=== PATIENT | female | born 1955 | race American Indian/Alaskan Native ===

== ENCOUNTER 2020-02-08 12:12 | Inpatient (IN) | payer MEDICAID ==
[~2020-02-08] VITALS: Ht 172.7 cm; Wt 122.7 kg
[~2020-02-08 12:12] MED LIST: ASPI-1265 PO; ATOR20TA PO; FURO-149 PO; GLIP10TA21 PO; HYDR-4353 PO; LANS30CA56 PO; METO-384 PO; MONT10TA21 PO; NITR0.4T51 SL; OXYC10TA86 PO; POTA8TAB3 PO
[2020-02-08] MEDS ORDERED: morphine 4 MG/ML inj SYRINge IV ONE ×2 (12:25→14:40)
[2020-02-08] MEDS ORDERED: fentaNYL/PF 50MCG/1 ML 2ML syringe IV ONE (12:35)
[2020-02-08 12:53] LABS: BASOPHILS # (AUTO) 0.1 X10'3 (0-0.2); EOSINOPHILS # (AUTO) 0.3 X10'3 (0-0.9); EOSINOPHILS % (AUTO) 2.7 % (0-6); HEMATOCRIT 37.7 % (35.0-45.0); HEMOGLOBIN 12.2 g/dl (12.0-16.0); LYMPHOCYTES # (AUTO) 2.8 X10'3 (1.1-4.8); LYMPHOCYTES % (AUTO) 26.6 % (21-51); MEAN CORPUSCULAR HEMOGLOBIN 26.6 PG (27.0-31.0); MEAN CORPUSCULAR HGB CONC 32.5 g/dL (33.0-36.5); MEAN PLATELET VOLUME 9.9 FL (7.4-10.4); MONOCYTES # (AUTO) 0.6 X10'3 (0-0.9); MONOCYTES % (AUTO) 5.8 % (2-12); NEUTROPHILS # (AUTO) 6.8 X10'3 (1.8-7.7); NEUTROPHILS % (AUTO) 63.9 % (42-75); PLATELET COUNT 236 X10'3 (140-440); RED CELL DISTRIBUTION WIDTH 14.5 % (11.5-14.5); WHITE BLOOD COUNT 10.6 X10'3 (4.5-11.0)
[2020-02-08 13:01] LABS: ALBUMIN 2.9 G/DL (3.4-5.0); ANION GAP 7 (8-16); BLOOD UREA NITROGEN 18 MG/DL (7-18); BUN/CREATININE RATIO 16.5 (6.6-38.0); CALCIUM 8.5 MG/DL (8.5-10.1); CHLORIDE 99 MMOL/L (99-107); CREATININE 1.09 MG/DL (0.40-0.90); GLUCOSE 295 MG/DL (70-104); POTASSIUM 4.2 MMOL/L (3.5-5.1); SODIUM 133 MMOL/L (135-145); TOTAL CARBON DIOXIDE 27.2 MMOL/L (24-32); eGFR 51 ML/MIN
[2020-02-08] MEDS ORDERED: ondansetron/PF 4mg/2ml inj IV PRN (15:10)
[2020-02-08] MEDS ORDERED: potassium Cl 20 mEq SR tablet PO PRN ×2 (15:10)
[2020-02-08] MEDS ORDERED: morphine 2 MG/ML inj. syringe IV PRN ×2 (15:10)
[2020-02-08] MEDS ORDERED: acetaminophen 325mg tablet PO PRN ×2 (15:10)
[2020-02-08] MEDS ORDERED: magnesium 4gm in 100ml NS 100 ML IV PRN (15:10)
[2020-02-08] MEDS ORDERED: HYDROcodone/acetaminophen 10/325mg tab PO PRN (15:10)
[2020-02-08] MEDS ORDERED: potassium CL 10mEq/100ml bag 100 ML IV PRN ×2 (15:10)
[2020-02-08] MEDS ORDERED: HYDROmorphone inj. 0.5 MG/0.5 ML DISP.SYRIN IV PRN (15:10)
[2020-02-08] MEDS ORDERED: magnesium 2GM in 50ml NS 50 ML IV PRN (15:10)
[2020-02-08] MEDS ORDERED: magnesium Cl slow-release 64mg tablet PO PRN (15:10)
[2020-02-08] MEDS ORDERED: HYDROcodone/acetaminophen 5mg/325mg tablet PO PRN (15:10)
[2020-02-08] MEDS ORDERED: dextrose 50%-water 50ml dispensing syringe IV PRN ×2 (15:15)
[2020-02-08] MEDS ORDERED: glucagon, human recombinant 1mg kit SUBCUT PRN (15:15)
[2020-02-08] MEDS ORDERED: dextrose ORAL solution 15 GM/59 ML bottle PO PRN ×2 (15:15)
[2020-02-08] MEDS ORDERED: MESSAGE TO PHARMACY PO ONE (15:15)
[2020-02-08] MEDS ORDERED: SITA100T11 PO (15:18)
[2020-02-08 15:31] LABS: CLARITY,URINE SLIGHTLY CLOUDY (Clear); COLOR,URINE STRAW (Yellow); GLUCOSE, URINE NEGATIVE (Neg); KETONES,URINE NEGATIVE (Neg); LEUKOCYTE ESTERASE ,URINE NEGATIVE (Neg); NITRITES, URINE NEGATIVE (Neg); OCCULT BLOOD,URINE TRACE-INTACT (Neg); PROTEIN,URINE NEGATIVE (Neg); UA COLLECTION TYPE OTHER; UROBILINOGEN,URINE 0.2 E.U/dL (0.2-1.0)
[2020-02-08] MEDS: normal saline 1000ml 1,000 ML IV SCH (15:32)
[2020-02-08 15:41] LABS: HEMOGLOBIN A1C 13.6 % (4.5-6.2)
[2020-02-08 15:44] LABS: MUCUS STRANDS FEW /LPF (Neg); SQUAMOUS EPITHELIAL CELL,UR MANY /LPF (FEW); TRANSITIONAL EPI CELLS,URINE MODERATE /HPF
[2020-02-08 15:46] LABS: BACTERIA,URINE FEW /HPF (Neg); RBC,URINE 0-2 /HPF (0-2); WBC,URINE 0-4 /HPF (0-4)
--- NOTE | 2020-02-08 16:08 | NUR ---
Patient in room ED 10. I have received report from Silver JONES and had the opportunity to ask questions and assume patient care.
[2020-02-08 18:00] VITALS: BP 126/69
--- NOTE | 2020-02-08 18:22 | NUR ---
Problems reprioritized. Patient report given, questions answered & plan of care reviewed with Zane JONES.
[2020-02-08] MEDS: heparin, porcine 5000 units/ml vial SQ SCH (19:43)
[2020-02-08] MEDS: insulin Lispro (HumaLOG) vial - multi-dose SQ SCH ×2 (19:46→22:46)
[2020-02-08] MEDS: docusate sod 100mg capsule PO SCH (19:53)
[2020-02-08] MEDS: K and/or MAG REPLACEMENT MC SCH (20:00)
[2020-02-08] MEDS ORDERED: oxyCODONE SR 10mg (sust. release) tab PO SCH (20:00)
[2020-02-08] MEDS ORDERED: LIDOcaine 2% 10ml TOPICAL JELLY (Urojet) TP ONE (20:00)
[2020-02-08] MEDS ORDERED: naloxone 0.4 mg/ml inj IV PRN (20:25)
[2020-02-08] MEDS ORDERED: CADD PCA waste documentation MC PRN (20:25)
[2020-02-08] MEDS: HYDROmorphone/NS 1 mg/ml CADD 50 ML IV SCH ×3 (21:00→22:49)
[2020-02-08 22:00] VITALS: BP 115/52
[2020-02-08] MEDS: insulin glargine (Lantus) pen - multi-dose SQ SCH (22:45)
[2020-02-08] MEDS: atorvastatin 20mg tablet PO SCH (22:48)
[2020-02-09] MEDS: HYDROmorphone/NS 1 mg/ml CADD 50 ML IV SCH ×10 (01:00→23:00)
[2020-02-09] MEDS: normal saline 1000ml 1,000 ML IV SCH ×3 (01:09→23:38)
[2020-02-09 06:00] VITALS: BP 120/55
[2020-02-09 06:09] LABS: ALANINE AMINOTRANSFERASE 23 U/L (12-78); ALBUMIN 2.4 G/DL (3.4-5.0); ALBUMIN/GLOBULIN RATIO 0.7 (1.1-1.5); ALKALINE PHOSPHATASE 89 IU/L (46-116); ANION GAP 2 (8-16); ASPARTATE AMINO TRANSFERASE 16 U/L (10-37); BILIRUBIN,TOTAL 0.4 MG/DL (0.1-1.0); BLOOD UREA NITROGEN 13 MG/DL (7-18); BUN/CREATININE RATIO 12.4 (6.6-38.0); CHLORIDE 105 MMOL/L (99-107); CREATININE 1.05 MG/DL (0.40-0.90); GLUCOSE 229 MG/DL (70-104); MAGNESIUM 2.1 MG/DL (1.5-2.4); POTASSIUM 4.2 MMOL/L (3.5-5.1); SODIUM 134 MMOL/L (135-145); TOTAL CARBON DIOXIDE 26.8 MMOL/L (24-32); TOTAL PROTEIN 5.8 G/DL (6.4-8.2); eGFR 53 ML/MIN
--- NOTE | 2020-02-09 06:10 | NUR ---
Patient in room ORTHO 4021. I have received report from Jw JONES and had the opportunity to ask questions and assume patient care.
[2020-02-09 06:16] LABS: BASOPHILS % (AUTO) 0.4 % (0-1); CALCIUM 7.6 MG/DL (8.5-10.1); EOSINOPHILS # (AUTO) 0.1 X10'3 (0-0.9); EOSINOPHILS % (AUTO) 1.3 % (0-6); HEMATOCRIT 30.7 % (35.0-45.0); HEMOGLOBIN 10.1 g/dl (12.0-16.0); LYMPHOCYTES # (AUTO) 3.3 X10'3 (1.1-4.8); LYMPHOCYTES % (AUTO) 31.8 % (21-51); MEAN CORPUSCULAR HEMOGLOBIN 27.1 PG (27.0-31.0); MEAN CORPUSCULAR HGB CONC 32.8 g/dL (33.0-36.5); MEAN CORPUSCULAR VOLUME 82.7 FL (78-98); MEAN PLATELET VOLUME 9.8 FL (7.4-10.4); MONOCYTES # (AUTO) 0.8 X10'3 (0-0.9); MONOCYTES % (AUTO) 7.2 % (2-12); NEUTROPHILS # (AUTO) 6.2 X10'3 (1.8-7.7); NEUTROPHILS % (AUTO) 59.3 % (42-75); PLATELET COUNT 187 X10'3 (140-440); RED BLOOD COUNT 3.71 X10'6 (4.20-5.60); RED CELL DISTRIBUTION WIDTH 14.8 % (11.5-14.5); WHITE BLOOD COUNT 10.4 X10'3 (4.5-11.0)
[2020-02-09] MEDS: heparin, porcine 5000 units/ml vial SQ SCH ×2 (06:50→19:24)
[2020-02-09] MEDS: metoprolol succinate 25mg (24-HOUR) SR. Tablet PO SCH (07:31)
[2020-02-09] MEDS: montelukast 10mg tablet PO SCH (07:32)
[2020-02-09] MEDS: pantoprazole 40mg Tablet.DR PO SCH (07:32)
[2020-02-09] MEDS: docusate sod 100mg capsule PO SCH ×2 (07:32→19:24)
[2020-02-09] MEDS: furosemide 40mg tablet PO SCH (07:32)
[2020-02-09] MEDS: K and/or MAG REPLACEMENT MC SCH ×2 (07:35→20:00)
[2020-02-09 11:00] VITALS: BP 119/53
[2020-02-09] MEDS: insulin Lispro (HumaLOG) vial - multi-dose SQ SCH ×3 (12:17→21:01)
[2020-02-09 12:45] VITALS: BP 119/53
[2020-02-09] MEDS ORDERED: ceFAZolin 1000mg inj IV ONE (13:35)
[2020-02-09] MEDS ORDERED: VANCOMYCIN 1,500MG inj. 1,500 MG in normal saline 500ml IV soln 500 ML IV ONE (13:49)
[2020-02-09] MEDS ORDERED: ceFAZolin 2gm in dextrose, iso 50 ML IV ONE (13:50)
--- NOTE | 2020-02-09 15:22 | NUR ---
DM consult, A1c 13.6, met with patient at bedside and given written DM education handout with verbal review. She reports she normally takes glipizide and last week her PCP added Princess. Sees DM educators at [facility]. Discussed at length carb portion sizes, eating smaller more frequent meals, reducing sugar sweetened beverages. Provided RD contact information. Addendum: 02/09/20 at [address] Amended: Links added.
[2020-02-09 18:00] VITALS: BP 132/51
--- NOTE | 2020-02-09 18:19 | NUR ---
Problems reprioritized. Patient report given, questions answered & plan of care reviewed with Smiley JONES.
[2020-02-09] MEDS: atorvastatin 20mg tablet PO SCH (19:24)
[2020-02-09] MEDS: insulin glargine (Lantus) pen - multi-dose SQ SCH (21:03)
[2020-02-10] VITALS (36 sets, daily range): BP systolic 91–143; BP diastolic 41–71
[2020-02-10] MEDS: HYDROmorphone/NS 1 mg/ml CADD 50 ML IV SCH ×11 (01:00→23:00)
[2020-02-10] MEDS ORDERED: famotidine/PF 10 mg/ml inj IV ONE (05:30)
--- NOTE | 2020-02-10 06:09 | NUR ---
Problems reprioritized. Patient report given, questions answered & plan of care reviewed with ROBERT Zaidi.
--- NOTE | 2020-02-10 06:36 | NUR ---
Patient in room ORTHO 4021. I have received report from Smiley JONES and had the opportunity to ask questions and assume patient care.
[2020-02-10] MEDS: pantoprazole 40mg Tablet.DR PO SCH (06:53)
[2020-02-10] MEDS: metoprolol succinate 25mg (24-HOUR) SR. Tablet PO SCH (06:53)
[2020-02-10] MEDS: furosemide 40mg tablet PO SCH (06:53)
[2020-02-10] MEDS: heparin, porcine 5000 units/ml vial SQ SCH ×2 (06:53→19:34)
[2020-02-10] MEDS: docusate sod 100mg capsule PO SCH ×2 (06:53→19:34)
[2020-02-10] MEDS: montelukast 10mg tablet PO SCH (06:53)
[2020-02-10] MEDS ORDERED: VANCOMYCIN 1,500MG inj. 1,500 MG in normal saline 500ml IV soln 500 ML IV ONE ×2 (07:00→08:00)
[2020-02-10] MEDS ORDERED: ceFAZolin 2gm in dextrose, iso 50 ML IV ONE (07:00)
[2020-02-10] MEDS: normal saline 1000ml 1,000 ML IV SCH ×3 (07:09→19:39)
[2020-02-10 07:14] LABS: BASOPHILS # (AUTO) 0.1 X10'3 (0-0.2); BASOPHILS % (AUTO) 0.6 % (0-1); EOSINOPHILS # (AUTO) 0.2 X10'3 (0-0.9); EOSINOPHILS % (AUTO) 1.2 % (0-6); HEMATOCRIT 29.6 % (35.0-45.0); HEMOGLOBIN 9.6 g/dl (12.0-16.0); LYMPHOCYTES # (AUTO) 2.6 X10'3 (1.1-4.8); LYMPHOCYTES % (AUTO) 21.3 % (21-51); MEAN CORPUSCULAR HEMOGLOBIN 26.8 PG (27.0-31.0); MEAN CORPUSCULAR HGB CONC 32.2 g/dL (33.0-36.5); MEAN PLATELET VOLUME 9.8 FL (7.4-10.4); MONOCYTES # (AUTO) 1.1 X10'3 (0-0.9); MONOCYTES % (AUTO) 8.7 % (2-12); NEUTROPHILS # (AUTO) 8.3 X10'3 (1.8-7.7); NEUTROPHILS % (AUTO) 68.2 % (42-75); PLATELET COUNT 169 X10'3 (140-440); RED BLOOD COUNT 3.57 X10'6 (4.20-5.60); RED CELL DISTRIBUTION WIDTH 14.6 % (11.5-14.5); WHITE BLOOD COUNT 12.2 X10'3 (4.5-11.0)
[2020-02-10 07:29] LABS: ALANINE AMINOTRANSFERASE 22 U/L (12-78); ALBUMIN 2.3 G/DL (3.4-5.0); ALBUMIN/GLOBULIN RATIO 0.7 (1.1-1.5); ALKALINE PHOSPHATASE 85 IU/L (46-116); ANION GAP 6 (8-16); ASPARTATE AMINO TRANSFERASE 16 U/L (10-37); BILIRUBIN,TOTAL 0.4 MG/DL (0.1-1.0); BLOOD UREA NITROGEN 7 MG/DL (7-18); BUN/CREATININE RATIO 7.5 (6.6-38.0); CALCIUM 7.6 MG/DL (8.5-10.1); CHLORIDE 106 MMOL/L (99-107); CREATININE 0.93 MG/DL (0.40-0.90); GLUCOSE 234 MG/DL (70-104); MAGNESIUM 1.9 MG/DL (1.5-2.4); POTASSIUM 3.8 MMOL/L (3.5-5.1); SODIUM 137 MMOL/L (135-145); TOTAL CARBON DIOXIDE 25.4 MMOL/L (24-32); TOTAL PROTEIN 5.8 G/DL (6.4-8.2); eGFR 61 ML/MIN
[2020-02-10] MEDS ORDERED: tetracaine 1% (10mg/ml) pres. free inj. ONE ×2 (07:48→08:07)
[2020-02-10] MEDS ORDERED: morphine /PF 1mg/ml 10ml inj. ONE (07:51)
[2020-02-10] MEDS ORDERED: MIDAZolam 5mg/5ml vial ONE (07:51)
[2020-02-10] MEDS: K and/or MAG REPLACEMENT MC SCH ×2 (08:00→20:00)
[2020-02-10] MEDS ORDERED: ringers solution, lacted 1,000 ML IV SCH (08:32)
[2020-02-10] MEDS ORDERED: ROPIVAcaine 0.2%/PF PUMP/bolus 550 ML ADDCANAL SCH (08:32)
[2020-02-10] MEDS ORDERED: naloxone 2mg/2ml inj 2 MG in normal saline 500ml IV soln 500 ML IV PRN (08:32)
[2020-02-10] MEDS ORDERED: morphine 2 MG/ML inj. syringe IV PRN (08:35)
[2020-02-10] MEDS ORDERED: meperidine/PF 25mg/ml syringe IV PRN (08:35)
[2020-02-10] MEDS ORDERED: morphine 4 MG/ML inj SYRINge IV PRN (08:35)
[2020-02-10] MEDS ORDERED: acetaminophen 1,000mg/100ml IV 100 ML IV PRN (08:35)
[2020-02-10] MEDS ORDERED: HYDROmorphone inj. 0.5 MG/0.5 ML DISP.SYRIN IV PRN (08:35)
[2020-02-10] MEDS ORDERED: ROPIVAcaine 0.2% (10 MG/5 ML) BOLUS INJECTION ADDCANAL PRN (08:35)
[2020-02-10] MEDS ORDERED: proCHLORperazine 10 MG/2 ml inj IV PRN (08:35)
[2020-02-10] MEDS ORDERED: diphenhydrAMINE 50 mg/ml inj IV PRN (08:35)
[2020-02-10] MEDS ORDERED: ondansetron/PF 4mg/2ml inj IV PRN ×3 (08:35→12:00)
[2020-02-10] MEDS ORDERED: insulin regular, human U-100 3ml vial - multi-dose ONE (08:51)
[2020-02-10] MEDS ORDERED: propofol inj 20 ML IV ONE ×4 (08:58→09:59)
[2020-02-10] MEDS ORDERED: LIDOcaine 2% (20mg/ml) 5ml vial ONE (08:58)
[2020-02-10] MEDS ORDERED: phenylephrine 10mg/ml inj. ONE (08:59)
[2020-02-10] MEDS ORDERED: ePHEDrine 50MG/ML INJ. ONE (08:59)
[2020-02-10] MEDS ORDERED: 0.9 % SODIUM CHLORIDE 10 ML VIAL ONE (09:18)
[2020-02-10] MEDS ORDERED: PHENYLephrine 100 MG in NS 250ml IV soln IV SCH (10:30)
[2020-02-10] MEDS ORDERED: LIDOcaine 1%/PF 5ML 10 MG/ML VIAL ONE (10:51)
[2020-02-10] MEDS ORDERED: ROPIVAcaine 0.5% (5mg/ml) 30ml vial ONE (10:51)
[2020-02-10] MEDS ORDERED: cloNIDine hcl/PF 100mcg/ml inj ONE (10:56)
[2020-02-10] MEDS ORDERED: diphenhydrAMINE 25mg capsule PO PRN ×2 (12:00)
[2020-02-10] MEDS ORDERED: acetaminophen 325mg tablet PO PRN (12:00)
[2020-02-10] MEDS ORDERED: bisacodyl 10mg suppository rectal RC PRN (12:00)
[2020-02-10] MEDS ORDERED: magnesium hydroxide 30ml (MOM) UD suspension PO PRN (12:00)
--- NOTE | 2020-02-10 12:02 | NUR ---
RECEIVED FROM OR VIA BED ACCOMPANIED BY ANESTHESIOLOGIST DR BLUM, REPORT GIVEN. PT ALERT AND AWAKE WIT NO COMPLAINT OF PAIN AT THIS TIME. 20 GAUGE ART LINE RIGHT WRIST, 20 GAUGE PIV R FA PATENT AND RUNNING LR AT 100 ML/HR. RLE DRESSING CDI. SKIN PINK AND WARM, PERIPHERAL PULSES PALPABLE, UNABLE TO PALPATE R PEDAL COVERED IN SPLINT. F/C DRAINING CLEAR YELLOW FLUID. RESTING COMFORTABLY
--- NOTE | 2020-02-10 12:02 | NUR ---
20 GAUGE SL NOTED R HAND
--- NOTE | 2020-02-10 12:02 | NUR ---
SPINAL SENSATION BELOW KNEE, SCDS APPLIED.
[2020-02-10] MEDS ORDERED: ceFAZolin 1000mg inj ONE (12:03)
[2020-02-10 12:30] LABS: ISTAT CREATININE 0.7 mg/dL (0.6-1.1); ISTAT HGB 8.8 g/dl (12.0-16.0); ISTAT IONIZED CALCIUM 1.14 mmol/L (1.03-1.32); ISTAT K 3.4 mmol/L (3.5-5.1)
[2020-02-10] MEDS: HYDROmorphone inj. 0.5 MG/0.5 ML DISP.SYRIN IV PRN ×5 (14:19→15:29)
--- NOTE | 2020-02-10 16:02 | NUR ---
TRANSFERRED VIA BED ACCOMPANIED BY MYSELF, REPORT GIVEN. PT ALERT AND AWAKE WITH COMPLAINT OF PAIN AT LEVEL 7 AT THIS TIME. 20 GAUGE ART LINE RIGHT WRIST DC/D CATH TIP INTACT, 20 GAUGE PIV R FA PATENT AND RUNNING LR AT 100 ML/HR, 20 GAUGE SL R HAND. RLE DRESSING CDI. SKIN PINK AND WARM, PERIPHERAL PULSES PALPABLE, UNABLE TO PALPATE R PEDAL COVERED IN SPLINT. F/C DRAINING CLEAR YELLOW FLUID. LEFT IN CARE OF ORTHO NURSE
--- NOTE | 2020-02-10 16:18 | NUR ---
Patient back to room from Recovery in stable condition. Vital signs stable, patient is alert and oriented. Call light in reach
[2020-02-10] MEDS: ceFAZolin 1GM/D5W- ADD-VANTAGE 50 ML IV SCH (17:48)
--- NOTE | 2020-02-10 18:10 | NUR ---
Patient in room ORTHO 4021. I have received report from ROBERT Zaidi and had the opportunity to ask questions and assume patient care.
[2020-02-10] MEDS: insulin Lispro (HumaLOG) vial - multi-dose SQ SCH ×2 (18:48→21:13)
--- NOTE | 2020-02-10 19:13 | NUR ---
Cadd pump was showing a different number on the infused medicine instate of 0.60 it should be 21.2.For some reason day nurse hit a wrong button.
[2020-02-10] MEDS: atorvastatin 20mg tablet PO SCH (19:34)
[2020-02-10] MEDS ORDERED: vancomycin/NS 1 GM ADD-VANTAGE 250 ML IV SCH (20:00)
[2020-02-10] MEDS: sennosides 8.6mg tablet PO SCH (21:14)
[2020-02-10] MEDS: insulin glargine (Lantus) pen - multi-dose SQ SCH (21:14)
[2020-02-10] MEDS: temazepam 15mg capsule PO PRN (21:15)
[2020-02-11] VITALS (7 sets, daily range): BP systolic 106–155; BP diastolic 53–91
[2020-02-11] MEDS: ceFAZolin 1GM/D5W- ADD-VANTAGE 50 ML IV SCH (00:14)
[2020-02-11] MEDS: HYDROmorphone/NS 1 mg/ml CADD 50 ML IV SCH ×4 (01:00→07:00)
[2020-02-11 06:13] LABS: HEMOGLOBIN 8.5 g/dl (12.0-16.0); RED BLOOD COUNT 3.13 X10'6 (4.20-5.60)
[2020-02-11 06:18] LABS: BASOPHILS % (AUTO) 0.1 % (0-1); EOSINOPHILS % (AUTO) 0 % (0-6); HEMATOCRIT 26.4 % (35.0-45.0); LYMPHOCYTES # (AUTO) 1.7 X10'3 (1.1-4.8); LYMPHOCYTES % (AUTO) 7.3 % (21-51); MEAN CORPUSCULAR HEMOGLOBIN 27.2 PG (27.0-31.0); MEAN CORPUSCULAR HGB CONC 32.2 g/dL (33.0-36.5); MEAN CORPUSCULAR VOLUME 84.6 FL (78-98); MEAN PLATELET VOLUME 9.4 FL (7.4-10.4); MONOCYTES # (AUTO) 2.1 X10'3 (0-0.9); MONOCYTES % (AUTO) 9.2 % (2-12); NEUTROPHILS # (AUTO) 18.8 X10'3 (1.8-7.7); NEUTROPHILS % (AUTO) 83.4 % (42-75); PLATELET COUNT 142 X10'3 (140-440); RED CELL DISTRIBUTION WIDTH 14.9 % (11.5-14.5); WHITE BLOOD COUNT 22.6 X10'3 (4.5-11.0)
[2020-02-11 06:28] LABS: ALANINE AMINOTRANSFERASE 19 U/L (12-78); ALBUMIN 2.5 G/DL (3.4-5.0); ALBUMIN/GLOBULIN RATIO 0.6 (1.1-1.5); ALKALINE PHOSPHATASE 88 IU/L (46-116); ANION GAP 11 (8-16); ASPARTATE AMINO TRANSFERASE 21 U/L (10-37); BILIRUBIN,TOTAL 0.6 MG/DL (0.1-1.0); BLOOD UREA NITROGEN 14 MG/DL (7-18); BUN/CREATININE RATIO 10.9 (6.6-38.0); CALCIUM 8.2 MG/DL (8.5-10.1); CHLORIDE 97 MMOL/L (99-107); CREATININE 1.28 MG/DL (0.40-0.90); GLUCOSE 312 MG/DL (70-104); MAGNESIUM 1.6 MG/DL (1.5-2.4); POTASSIUM 4.3 MMOL/L (3.5-5.1); SODIUM 129 MMOL/L (135-145); TOTAL CARBON DIOXIDE 20.6 MMOL/L (24-32); TOTAL PROTEIN 6.4 G/DL (6.4-8.2); eGFR 42 ML/MIN
--- NOTE | 2020-02-11 06:30 | NUR ---
Problems reprioritized. Patient report given, questions answered & plan of care reviewed with ROBERT Billingsley.
--- NOTE | 2020-02-11 06:30 | NUR ---
Patient in room ORTHO 4021. I have received report from ROBERT Maxwell and had the opportunity to ask questions and assume patient care.
[2020-02-11 06:53] LABS: ANISOCYTOSIS 1+; MICROCYTOSIS 1+; PLATELET ESTIMATE NORMAL; TOTAL CELLS COUNTED 100
[2020-02-11] MEDS: normal saline 1000ml 1,000 ML IV SCH ×2 (07:38→23:09)
[2020-02-11] MEDS ORDERED: oxyCODONE/APAP 10/325mg tablet PO PRN (07:45)
[2020-02-11] MEDS: K and/or MAG REPLACEMENT MC SCH ×2 (08:00→20:00)
[2020-02-11] MEDS: oxyCODONE/APAP 10/325mg tablet PO PRN ×3 (08:08→21:36)
[2020-02-11] MEDS: docusate sod 100mg capsule PO SCH ×2 (08:10→21:38)
[2020-02-11] MEDS: montelukast 10mg tablet PO SCH (08:10)
[2020-02-11] MEDS: metoprolol succinate 25mg (24-HOUR) SR. Tablet PO SCH (08:10)
[2020-02-11] MEDS: furosemide 40mg tablet PO SCH (08:10)
[2020-02-11] MEDS: heparin, porcine 5000 units/ml vial SQ SCH ×2 (08:11→21:38)
[2020-02-11] MEDS: pantoprazole 40mg Tablet.DR PO SCH (08:11)
[2020-02-11] MEDS: insulin Lispro (HumaLOG) vial - multi-dose SQ SCH ×3 (08:25→19:01)
[2020-02-11] MEDS: HYDROmorphone 1 mg/ml syringe IV PRN ×2 (13:55→18:56)
--- NOTE | 2020-02-11 15:20 | NUR ---
Paged to inform her that pts WBC Count had increased from 12.2 yesterday to 22.6 today. Pt is using IS every hour. Lungs have decreased BS and Urine output is clear duane in color. No new orders received. Will continue to monitor patient.
--- NOTE | 2020-02-11 18:30 | NUR ---
Problems reprioritized. Patient report given, questions answered & plan of care reviewed with ROBERT Nathan.
[2020-02-11] MEDS: insulin glargine (Lantus) pen - multi-dose SQ SCH (21:34)
[2020-02-11] MEDS: temazepam 15mg capsule PO PRN (21:35)
[2020-02-11] MEDS: atorvastatin 20mg tablet PO SCH (21:37)
[2020-02-11] MEDS: sennosides 8.6mg tablet PO SCH (21:38)
[2020-02-12] MEDS: HYDROmorphone 1 mg/ml syringe IV PRN (03:23)
[2020-02-12] MEDS: oxyCODONE/APAP 10/325mg tablet PO PRN ×3 (05:27→16:58)
[2020-02-12 06:00] VITALS: BP 131/77
--- NOTE | 2020-02-12 06:20 | NUR ---
Problems reprioritized. Patient report given, questions answered & plan of care reviewed with ROBERT PAK.
--- NOTE | 2020-02-12 06:30 | NUR ---
Patient in room ORTHO 4021. I have received report from ROBERT Nathan and had the opportunity to ask questions and assume patient care.
[2020-02-12 07:02] LABS: BASOPHILS # (AUTO) 0.1 X10'3 (0-0.2); BASOPHILS % (AUTO) 0.3 % (0-1); EOSINOPHILS % (AUTO) 0.2 % (0-6); HEMATOCRIT 23.2 % (35.0-45.0); HEMOGLOBIN 7.5 g/dl (12.0-16.0); LYMPHOCYTES # (AUTO) 2.1 X10'3 (1.1-4.8); LYMPHOCYTES % (AUTO) 13.1 % (21-51); MEAN CORPUSCULAR HEMOGLOBIN 27.2 PG (27.0-31.0); MEAN CORPUSCULAR HGB CONC 32.5 g/dL (33.0-36.5); MEAN CORPUSCULAR VOLUME 83.7 FL (78-98); MONOCYTES # (AUTO) 1.9 X10'3 (0-0.9); MONOCYTES % (AUTO) 11.7 % (2-12); NEUTROPHILS # (AUTO) 12.2 X10'3 (1.8-7.7); NEUTROPHILS % (AUTO) 74.7 % (42-75); PLATELET COUNT 143 X10'3 (140-440); RED BLOOD COUNT 2.77 X10'6 (4.20-5.60); WHITE BLOOD COUNT 16.4 X10'3 (4.5-11.0)
[2020-02-12 07:25] LABS: ALANINE AMINOTRANSFERASE 16 U/L (12-78); ALBUMIN/GLOBULIN RATIO 0.5 (1.1-1.5); ALKALINE PHOSPHATASE 87 IU/L (46-116); ANION GAP 8 (8-16); ASPARTATE AMINO TRANSFERASE 23 U/L (10-37); BILIRUBIN,TOTAL 0.7 MG/DL (0.1-1.0); BLOOD UREA NITROGEN 10 MG/DL (7-18); BUN/CREATININE RATIO 10.1 (6.6-38.0); CALCIUM 7.9 MG/DL (8.5-10.1); CHLORIDE 102 MMOL/L (99-107); CREATININE 0.99 MG/DL (0.40-0.90); GLUCOSE 168 MG/DL (70-104); MAGNESIUM 1.7 MG/DL (1.5-2.4); POTASSIUM 3.8 MMOL/L (3.5-5.1); SODIUM 133 MMOL/L (135-145); TOTAL CARBON DIOXIDE 22.8 MMOL/L (24-32); TOTAL PROTEIN 5.7 G/DL (6.4-8.2); eGFR 57 ML/MIN
[2020-02-12] MEDS: K and/or MAG REPLACEMENT MC SCH (08:00)
[2020-02-12] MEDS: furosemide 40mg tablet PO SCH (08:54)
[2020-02-12] MEDS: docusate sod 100mg capsule PO SCH (08:54)
[2020-02-12] MEDS: montelukast 10mg tablet PO SCH (08:54)
[2020-02-12] MEDS: metoprolol succinate 25mg (24-HOUR) SR. Tablet PO SCH (08:54)
[2020-02-12] MEDS: pantoprazole 40mg Tablet.DR PO SCH (08:54)
[2020-02-12] MEDS: heparin, porcine 5000 units/ml vial SQ SCH (08:56)
[2020-02-12] MEDS: insulin Lispro (HumaLOG) vial - multi-dose SQ SCH ×2 (09:20→13:59)
[2020-02-12] MEDS: normal saline 1000ml 1,000 ML IV SCH (09:22)
[2020-02-12 10:00] VITALS: BP 140/56
--- NOTE | 2020-02-12 17:00 | NUR ---
Received discharge orders for pt to transfer to [facility] rehab today. IV removed from right hand with cannula intact. Picked up stored narcotics (Oxycodone (6 tabs) and Hydrocodone/APAP 10 MG 1 tablet, in the Pharmacy. Pts daughter brought in medications yesterday and left at [employer]. Sent them to Pharmacy right after they were received from the [employer]. Medications sent to [facility] with [employer] ups driver. TC made to Clementina at [facility] and gave report on patient and informed her that pt had narcotics (as listed above) and advised lock up. Clementina said she would be doing the same thing. Pt transported via [facility] to [facility] at 1710 tonight.
== END 2020-02-12 17:00 | DRG 710 ==
LOC: ER 12:13 → ED HOLD 15:07 → ORTHO 4S 16:30
PROVIDERS: ADMIT Internal Medicine; ATTEND Internal Medicine
PROC: 3E0T3BZ Introduction of Anesthetic Agent into Peripheral Nerves and Plexi, Percutaneous Approach (ICD-10-PCS; 2020-02-10)
PROC: 0QSB04Z Reposition Right Lower Femur with Internal Fixation Device, Open Approach (ICD-10-PCS; principal; 2020-02-10 07:50)
DX: A41.9 Sepsis, unspecified organism (principal); S72.451A Displaced supracondylar fracture without intracondylar extension of lower end of right femur, initial encounter for closed fracture; G89.4 Chronic pain syndrome; I10 Essential (primary) hypertension; I25.10 Atherosclerotic heart disease of native coronary artery without angina pectoris; M17.11 Unilateral primary osteoarthritis, right knee; E66.9 Obesity, unspecified; K21.9 Gastro-esophageal reflux disease without esophagitis; D62 Acute posthemorrhagic anemia; E11.65 Type 2 diabetes mellitus with hyperglycemia; E78.5 Hyperlipidemia, unspecified; W01.0XXA Fall on same level from slipping, tripping and stumbling without subsequent striking against object, initial encounter; Z96.652 Presence of left artificial knee joint; Y93.01 Activity, walking, marching and hiking; Z87.891 Personal history of nicotine dependence; Z95.1 Presence of aortocoronary bypass graft; Z68.41 Body mass index [BMI] 40.0-44.9, adult; Y92.098 Other place in other non-institutional residence as the place of occurrence of the external cause
CPT/HCPCS: 36415; 71045; 73552; 73560; 73700; 80047; 80048; 80053; 81001; 82948; 83036; 83735; 85025; 86885; 86900; 86901; 86920; 87081; 93005; 97110; 97112; 97162; 97530; 99285; A4215; A6223; A6449; A7000; C1713; G0378; J0690; J0735; J1170; J1644; J1815; J2001; J2250; J2270; J2370; J2704; J2795; J3010; J3370; J3490; J7030; J7040

== ENCOUNTER 2020-02-15 07:46 | Emergency (ER) | payer MEDICAID ==
[~2020-02-15] VITALS: Ht 172.7 cm; Wt 130.0 kg
[~2020-02-15 07:46] MED LIST changes: +SITA100T11 PO
--- NOTE | 2020-02-15 09:06 | NUR ---
paged invisible braces orthodontist per provider request
[2020-02-15] MEDS ORDERED: morphine 4 MG/ML inj SYRINge IV ONE ×2 (09:30→12:35)
[2020-02-15 10:11] LABS: CLARITY,URINE CLEAR (Clear); COLOR,URINE STRAW (Yellow); GLUCOSE, URINE NEGATIVE (Neg); KETONES,URINE NEGATIVE (Neg); LEUKOCYTE ESTERASE ,URINE NEGATIVE (Neg); NITRITES, URINE NEGATIVE (Neg); OCCULT BLOOD,URINE NEGATIVE (Neg); PH,URINE 6.5 (4.8-8.0); PROTEIN,URINE NEGATIVE (Neg); UA COLLECTION TYPE CLN CATCH MIDSTREAM; UROBILINOGEN,URINE 0.2 E.U/dL (0.2-1.0)
[2020-02-15 11:00] LABS: BASOPHILS # (AUTO) 0.1 X10'3 (0-0.2); EOSINOPHILS # (AUTO) 0.2 X10'3 (0-0.9); EOSINOPHILS % (AUTO) 1.7 % (0-6); HEMOGLOBIN 7.1 g/dl (12.0-16.0); LYMPHOCYTES # (AUTO) 2.4 X10'3 (1.1-4.8); LYMPHOCYTES % (AUTO) 17.3 % (21-51); MEAN CORPUSCULAR HEMOGLOBIN 26.9 PG (27.0-31.0); MEAN CORPUSCULAR HGB CONC 32.3 g/dL (33.0-36.5); MEAN CORPUSCULAR VOLUME 83.3 FL (78-98); MONOCYTES # (AUTO) 1.3 X10'3 (0-0.9); MONOCYTES % (AUTO) 9.3 % (2-12); NEUTROPHILS # (AUTO) 9.9 X10'3 (1.8-7.7); NEUTROPHILS % (AUTO) 70.7 % (42-75); PLATELET COUNT 265 X10'3 (140-440); RED BLOOD COUNT 2.63 X10'6 (4.20-5.60); RED CELL DISTRIBUTION WIDTH 15.2 % (11.5-14.5); WHITE BLOOD COUNT 14.1 X10'3 (4.5-11.0)
[2020-02-15 11:11] LABS: ALANINE AMINOTRANSFERASE 18 U/L (12-78); ALBUMIN 1.8 G/DL (3.4-5.0); ALBUMIN/GLOBULIN RATIO 0.4 (1.1-1.5); ALKALINE PHOSPHATASE 160 IU/L (46-116); ANION GAP 9 (8-16); ASPARTATE AMINO TRANSFERASE 22 U/L (10-37); BILIRUBIN,TOTAL 0.7 MG/DL (0.1-1.0); BLOOD UREA NITROGEN 11 MG/DL (7-18); BUN/CREATININE RATIO 11.1 (6.6-38.0); CALCIUM 8.4 MG/DL (8.5-10.1); CHLORIDE 100 MMOL/L (99-107); CREATININE 0.99 MG/DL (0.40-0.90); GLUCOSE 192 MG/DL (70-104); POTASSIUM 3.2 MMOL/L (3.5-5.1); SODIUM 135 MMOL/L (135-145); TOTAL CARBON DIOXIDE 25.9 MMOL/L (24-32); TOTAL PROTEIN 6.1 G/DL (6.4-8.2); eGFR 57 ML/MIN
[2020-02-15] MEDS ORDERED: FERR240T5 PO (11:12)
[2020-02-15 14:09] VITALS: BP 147/66
== END 2020-02-15 14:10 ==
LOC: ER 07:47
DX: D64.9 Anemia, unspecified (principal); T84.84XA Pain due to internal orthopedic prosthetic devices, implants and grafts, initial encounter; M79.604 Pain in right leg; R05 Cough; I25.10 Atherosclerotic heart disease of native coronary artery without angina pectoris; E11.9 Type 2 diabetes mellitus without complications; Z96.698 Presence of other orthopedic joint implants; Z95.1 Presence of aortocoronary bypass graft; Z98.890 Other specified postprocedural states; Z79.82 Long term (current) use of aspirin; Z79.899 Other long term (current) drug therapy
CPT/HCPCS: 29505; 36415; 73560; 80053; 81003; 85025; 96374; 96376; 99285; J2270

== ENCOUNTER 2020-04-09 15:03 | Inpatient (IN) | payer MEDICAID ==
[~2020-04-09] VITALS: Ht 172.7 cm; Wt 119.1 kg
[~2020-04-09 15:03] MED LIST changes: +FERR240T5 PO
[2020-04-09] MEDS ORDERED: morphine 4 MG/ML inj SYRINge IV ONE ×2 (15:40→17:00)
[2020-04-09] MEDS ORDERED: ondansetron/PF 4mg/2ml inj IV ONE (15:40)
[2020-04-09 16:07] LABS: BASOPHILS # (AUTO) 0.1 X10'3 (0-0.2); BASOPHILS % (AUTO) 1.2 % (0-1); EOSINOPHILS # (AUTO) 0.1 X10'3 (0-0.9); EOSINOPHILS % (AUTO) 1.3 % (0-6); HEMATOCRIT 35.1 % (35.0-45.0); HEMOGLOBIN 11.4 g/dl (12.0-16.0); LYMPHOCYTES # (AUTO) 2.5 X10'3 (1.1-4.8); LYMPHOCYTES % (AUTO) 25.4 % (21-51); MEAN CORPUSCULAR HEMOGLOBIN 27.3 PG (27.0-31.0); MEAN CORPUSCULAR HGB CONC 32.4 g/dL (33.0-36.5); MEAN CORPUSCULAR VOLUME 84.2 FL (78-98); MEAN PLATELET VOLUME 8.3 FL (7.4-10.4); MONOCYTES # (AUTO) 0.7 X10'3 (0-0.9); MONOCYTES % (AUTO) 7.1 % (2-12); NEUTROPHILS # (AUTO) 6.4 X10'3 (1.8-7.7); PLATELET COUNT 350 X10'3 (140-440); RED BLOOD COUNT 4.18 X10'6 (4.20-5.60); RED CELL DISTRIBUTION WIDTH 14.7 % (11.5-14.5); WHITE BLOOD COUNT 9.8 X10'3 (4.5-11.0)
[2020-04-09 16:08] LABS: ALANINE AMINOTRANSFERASE 19 U/L (12-78); ALBUMIN 3.2 G/DL (3.4-5.0); ALBUMIN/GLOBULIN RATIO 0.8 (1.1-1.5); ALKALINE PHOSPHATASE 83 IU/L (46-116); ANION GAP 7 (8-16); ASPARTATE AMINO TRANSFERASE 14 U/L (10-37); BILIRUBIN,TOTAL 0.2 MG/DL (0.1-1.0); BLOOD UREA NITROGEN 22 MG/DL (7-18); CALCIUM 9.1 MG/DL (8.5-10.1); CHLORIDE 100 MMOL/L (99-107); GLUCOSE 152 MG/DL (70-104); POTASSIUM 4.1 MMOL/L (3.5-5.1); SODIUM 135 MMOL/L (135-145); TOTAL CARBON DIOXIDE 27.6 MMOL/L (24-32); TOTAL PROTEIN 7.4 G/DL (6.4-8.2); eGFR 56 ML/MIN
[2020-04-09] MEDS ORDERED: magnesium 2GM in 50ml NS 50 ML IV PRN (17:15)
[2020-04-09] MEDS ORDERED: bisacodyl 10mg suppository rectal RC PRN (17:15)
[2020-04-09] MEDS ORDERED: magnesium Cl slow-release 64mg tablet PO PRN (17:15)
[2020-04-09] MEDS ORDERED: magnesium 4gm in 100ml NS 100 ML IV PRN (17:15)
[2020-04-09] MEDS ORDERED: mag hydrox/Alum hydrox/simeth 30ml oral suspension PO PRN (17:15)
[2020-04-09] MEDS ORDERED: HYDROcodone/acetaminophen 5mg/325mg tablet PO PRN (17:15)
[2020-04-09] MEDS ORDERED: MESSAGE TO PHARMACY PO ONE (17:15)
[2020-04-09] MEDS ORDERED: potassium CL 10mEq/100ml bag 100 ML IV PRN ×2 (17:15)
[2020-04-09] MEDS ORDERED: diphenhydrAMINE 50 mg/ml inj IV PRN (17:15)
[2020-04-09] MEDS ORDERED: diphenhydrAMINE 25mg capsule PO PRN (17:15)
[2020-04-09] MEDS ORDERED: metoclopramide 5 mg/ml inj IV PRN (17:15)
[2020-04-09] MEDS ORDERED: morphine 2 MG/ML inj. syringe IV PRN ×3 (17:15→21:30)
[2020-04-09] MEDS ORDERED: acetaminophen 325mg tablet PO PRN ×2 (17:15)
[2020-04-09] MEDS ORDERED: potassium Cl 20 mEq SR tablet PO PRN ×2 (17:15)
[2020-04-09] MEDS ORDERED: acetaminophen 650mg rectal suppository RC PRN (17:15)
[2020-04-09] MEDS ORDERED: dextrose ORAL solution 15 GM/59 ML bottle PO PRN ×2 (17:15)
[2020-04-09] MEDS ORDERED: dextrose 50%-water 50ml dispensing syringe IV PRN ×2 (17:15)
[2020-04-09] MEDS ORDERED: glucagon, human recombinant 1mg kit SUBCUT PRN (17:15)
[2020-04-09] MEDS ORDERED: ondansetron/PF 4mg/2ml inj IV PRN (17:15)
[2020-04-09 17:48] LABS: CLARITY,URINE CLEAR (Clear); COLOR,URINE YELLOW (Yellow); GLUCOSE, URINE NEGATIVE (Neg); KETONES,URINE NEGATIVE (Neg); LEUKOCYTE ESTERASE ,URINE NEGATIVE (Neg); NITRITES, URINE NEGATIVE (Neg); OCCULT BLOOD,URINE NEGATIVE (Neg); PROTEIN,URINE NEGATIVE (Neg); UROBILINOGEN,URINE 0.2 E.U/dL (0.2-1.0)
[2020-04-09 17:54] LABS: UA COLLECTION TYPE FOLEY CATH
[2020-04-09 17:55] LABS: HEMOGLOBIN A1C 7.9 % (4.5-6.2)
[2020-04-09] MEDS: normal saline 1000ml 1,000 ML IV SCH (18:28)
[2020-04-09] MEDS: K and/or MAG REPLACEMENT MC SCH (20:00)
[2020-04-09] MEDS ORDERED: heparin, porcine 5000 units/ml vial SQ SCH (20:00)
[2020-04-09] MEDS ORDERED: temazepam 15mg capsule PO PRN (21:00)
[2020-04-09] MEDS: insulin glargine (Lantus) pen - multi-dose SQ SCH (21:00)
[2020-04-09] MEDS: HYDROcodone/acetaminophen 10/325mg tab PO PRN (21:35)
[2020-04-09 21:40] VITALS: BP 155/78
[2020-04-09] MEDS: morphine 4 MG/ML inj SYRINge IV PRN ×2 (21:49→23:51)
[2020-04-10] MEDS: HYDROcodone/acetaminophen 10/325mg tab PO PRN ×6 (01:48→22:51)
[2020-04-10] MEDS: morphine 4 MG/ML inj SYRINge IV PRN ×6 (02:24→20:00)
[2020-04-10] MEDS: normal saline 1000ml 1,000 ML IV SCH ×2 (04:38→13:49)
[2020-04-10] MEDS ORDERED: morphine 4 MG/ML inj SYRINge IV ONE (05:50)
[2020-04-10 06:00] VITALS: BP 133/57
--- NOTE | 2020-04-10 06:15 | NUR ---
Patient in room ORTHO 4010. I have received report from Analilia and had the opportunity to ask questions and assume patient care.
--- NOTE | 2020-04-10 06:19 | NUR ---
Problems reprioritized. Patient report given, questions answered & plan of care reviewed with ROBERT Deng.
[2020-04-10 06:34] LABS: BASOPHILS # (AUTO) 0.1 X10'3 (0-0.2); EOSINOPHILS # (AUTO) 0.1 X10'3 (0-0.9); HEMATOCRIT 34.5 % (35.0-45.0); HEMOGLOBIN 10.9 g/dl (12.0-16.0); LYMPHOCYTES # (AUTO) 3.2 X10'3 (1.1-4.8); LYMPHOCYTES % (AUTO) 26.3 % (21-51); MEAN CORPUSCULAR HEMOGLOBIN 26.3 PG (27.0-31.0); MEAN CORPUSCULAR HGB CONC 31.7 g/dL (33.0-36.5); MEAN CORPUSCULAR VOLUME 82.9 FL (78-98); MEAN PLATELET VOLUME 8.3 FL (7.4-10.4); MONOCYTES # (AUTO) 0.9 X10'3 (0-0.9); MONOCYTES % (AUTO) 7.5 % (2-12); NEUTROPHILS # (AUTO) 7.8 X10'3 (1.8-7.7); NEUTROPHILS % (AUTO) 64.2 % (42-75); PLATELET COUNT 339 X10'3 (140-440); RED BLOOD COUNT 4.16 X10'6 (4.20-5.60); RED CELL DISTRIBUTION WIDTH 14.5 % (11.5-14.5); WHITE BLOOD COUNT 12.1 X10'3 (4.5-11.0)
[2020-04-10 06:52] LABS: ALANINE AMINOTRANSFERASE 19 U/L (12-78); ALBUMIN/GLOBULIN RATIO 0.8 (1.1-1.5); ALKALINE PHOSPHATASE 80 IU/L (46-116); ANION GAP 9 (8-16); ASPARTATE AMINO TRANSFERASE 18 U/L (10-37); BILIRUBIN,TOTAL 0.3 MG/DL (0.1-1.0); BLOOD UREA NITROGEN 18 MG/DL (7-18); BUN/CREATININE RATIO 21.7 (6.6-38.0); CALCIUM 8.8 MG/DL (8.5-10.1); CHLORIDE 103 MMOL/L (99-107); CREATININE 0.83 MG/DL (0.40-0.90); GLUCOSE 99 MG/DL (70-104); MAGNESIUM 2.1 MG/DL (1.5-2.4); PHOSPHORUS 4.7 MG/DL (2.3-4.5); POTASSIUM 4.2 MMOL/L (3.5-5.1); SODIUM 138 MMOL/L (135-145); TOTAL CARBON DIOXIDE 26.3 MMOL/L (24-32); TOTAL PROTEIN 6.9 G/DL (6.4-8.2); eGFR 69 ML/MIN
[2020-04-10] MEDS: K and/or MAG REPLACEMENT MC SCH ×2 (08:00→20:00)
[2020-04-10 10:00] VITALS: BP 129/55
--- NOTE | 2020-04-10 11:53 | NUR ---
Pt's code changed from DNR to Full code, MD present in room while code status was being updated.
--- NOTE | 2020-04-10 14:57 | NUR ---
DM Consult: A1C 7.9 previously 13.6 January of this year. Pt seen by MARIO for written/verbal DM ed w/ RD contact information provided. Pt had questions regarding A1C, proper low Glu guidelines, and DKA which MARIO addressed. MARIO encouraged pt to f/u w/ PCP if low Glu become persistent. Addendum: 04/10/20 at [address] Amended: Links added.
[2020-04-10 18:00] VITALS: BP 144/62
--- NOTE | 2020-04-10 18:16 | NUR ---
Problems reprioritized. Patient report given, questions answered & plan of care reviewed with
[2020-04-10] MEDS: insulin glargine (Lantus) pen - multi-dose SQ SCH (21:00)
[2020-04-10 22:00] VITALS: BP 128/54
[2020-04-11] VITALS (17 sets, daily range): BP systolic 123–183; BP diastolic 40–100
[2020-04-11] MEDS: morphine 4 MG/ML inj SYRINge IV PRN ×4 (01:15→23:49)
[2020-04-11] MEDS: normal saline 1000ml 1,000 ML IV SCH ×3 (01:15→10:29)
--- NOTE | 2020-04-11 06:30 | NUR ---
Problems reprioritized. Patient report given, questions answered & plan of care reviewed with ROBERT Mon.
--- NOTE | 2020-04-11 06:37 | NUR ---
Patient in room ORTHO 4010. I have received report from ROBERT Heaton and had the opportunity to ask questions and assume patient care.
[2020-04-11 07:48] LABS: BASOPHILS # (AUTO) 0.1 X10'3 (0-0.2); BASOPHILS % (AUTO) 0.6 % (0-1); EOSINOPHILS # (AUTO) 0.2 X10'3 (0-0.9); EOSINOPHILS % (AUTO) 1.5 % (0-6); HEMATOCRIT 33.9 % (35.0-45.0); HEMOGLOBIN 10.8 g/dl (12.0-16.0); LYMPHOCYTES # (AUTO) 2.1 X10'3 (1.1-4.8); LYMPHOCYTES % (AUTO) 17.7 % (21-51); MEAN CORPUSCULAR HEMOGLOBIN 26.4 PG (27.0-31.0); MEAN CORPUSCULAR HGB CONC 31.8 g/dL (33.0-36.5); MEAN PLATELET VOLUME 8.2 FL (7.4-10.4); MONOCYTES # (AUTO) 0.8 X10'3 (0-0.9); MONOCYTES % (AUTO) 6.9 % (2-12); NEUTROPHILS # (AUTO) 8.7 X10'3 (1.8-7.7); NEUTROPHILS % (AUTO) 73.3 % (42-75); PLATELET COUNT 307 X10'3 (140-440); RED BLOOD COUNT 4.08 X10'6 (4.20-5.60); RED CELL DISTRIBUTION WIDTH 14.5 % (11.5-14.5); WHITE BLOOD COUNT 11.9 X10'3 (4.5-11.0)
[2020-04-11] MEDS: K and/or MAG REPLACEMENT MC SCH ×2 (08:00→20:59)
[2020-04-11 08:12] LABS: ALANINE AMINOTRANSFERASE 17 U/L (12-78); ALBUMIN 2.8 G/DL (3.4-5.0); ALBUMIN/GLOBULIN RATIO 0.7 (1.1-1.5); ALKALINE PHOSPHATASE 82 IU/L (46-116); ANION GAP 10 (8-16); ASPARTATE AMINO TRANSFERASE 16 U/L (10-37); BILIRUBIN,TOTAL 0.3 MG/DL (0.1-1.0); BLOOD UREA NITROGEN 13 MG/DL (7-18); BUN/CREATININE RATIO 17.8 (6.6-38.0); CALCIUM 8.4 MG/DL (8.5-10.1); CHLORIDE 102 MMOL/L (99-107); CREATININE 0.73 MG/DL (0.40-0.90); GLUCOSE 146 MG/DL (70-104); MAGNESIUM 1.8 MG/DL (1.5-2.4); PHOSPHORUS 3.6 MG/DL (2.3-4.5); POTASSIUM 4.1 MMOL/L (3.5-5.1); SODIUM 137 MMOL/L (135-145); TOTAL CARBON DIOXIDE 24.7 MMOL/L (24-32); TOTAL PROTEIN 6.8 G/DL (6.4-8.2); eGFR 81 ML/MIN
[2020-04-11] MEDS: HYDROcodone/acetaminophen 10/325mg tab PO PRN ×3 (08:23→20:45)
[2020-04-11] MEDS ORDERED: ringers solution, lacted 1,000 ML IV SCH (13:58)
[2020-04-11] MEDS ORDERED: meperidine/PF 25mg/ml syringe IV PRN ×2 (14:00)
[2020-04-11] MEDS ORDERED: ondansetron/PF 4mg/2ml inj IV PRN ×2 (14:00→18:20)
[2020-04-11] MEDS ORDERED: morphine 4 MG/ML inj SYRINge IV PRN (14:00)
[2020-04-11] MEDS ORDERED: morphine 2 MG/ML inj. syringe IV PRN (14:00)
[2020-04-11] MEDS ORDERED: proCHLORperazine 10 MG/2 ml inj IV PRN (14:00)
[2020-04-11] MEDS ORDERED: glycopyrrolate 0.2mg/ml inj ONE (14:25)
[2020-04-11] MEDS ORDERED: fentaNYL/PF 50MCG/1 ML 2ML syringe ONE (14:36)
[2020-04-11] MEDS ORDERED: MIDAZolam 1mg/ml 10ml vial ONE (14:36)
[2020-04-11] MEDS ORDERED: VANCOMYCIN 1,500MG inj. 1,500 MG in normal saline 500ml IV soln 300 ML IV ONE (15:01)
[2020-04-11] MEDS ORDERED: ceFAZolin 1000mg inj ONE ×2 (15:03)
[2020-04-11] MEDS ORDERED: TRANEXAMIC ACID 1 GM IN NACL,ISO-OS 100 ML IV ONE (15:20)
[2020-04-11] MEDS ORDERED: ceFAZolin 1GM/D5W- ADD-VANTAGE 50 ML IV ONE (17:00)
[2020-04-11] MEDS ORDERED: vancomycin 1,000mg inj ONE ×2 (17:41)
[2020-04-11] MEDS ORDERED: propofol inj 20 ML IV ONE (17:41)
[2020-04-11] MEDS ORDERED: LIDOcaine 1%/PF 5ML 10 MG/ML VIAL ONE (17:41)
[2020-04-11] MEDS ORDERED: diphenhydrAMINE 25mg capsule PO PRN ×2 (18:20)
[2020-04-11] MEDS ORDERED: acetaminophen 325mg tablet PO PRN (18:20)
[2020-04-11] MEDS ORDERED: magnesium hydroxide 30ml (MOM) UD suspension PO PRN (18:20)
[2020-04-11] MEDS ORDERED: bisacodyl 10mg suppository rectal RC PRN (18:20)
--- NOTE | 2020-04-11 18:22 | NUR ---
Problems reprioritized. Patient report given, questions answered & plan of care reviewed with ROBERT Cortes.
[2020-04-11] MEDS ORDERED: ROPIVAcaine 0.5% (5mg/ml) 30ml vial ONE (18:38)
--- NOTE | 2020-04-11 18:46 | NUR ---
Patient in room ORTHO 4010. I have received report from Elieser JONES and had the opportunity to ask questions and assume patient care. Patient in OR at this time.
--- NOTE | 2020-04-11 18:52 | NUR ---
Received from OR via , accompanied by Anesthesiologist DR CASTRO and report given by Anesthesiolgist. AWAKENS TO VOICE. VITALS STABLE. DRESSING DI. ANA M PAIN. SENSATION AT MID CALF. RUIZ WITH CLEAR URINE,
[2020-04-11] MEDS: meperidine/PF 25mg/ml syringe IV PRN ×2 (19:29→20:04)
[2020-04-11] MEDS ORDERED: vancomycin/NS 1 GM ADD-VANTAGE 250 ML IV SCH (20:00)
--- NOTE | 2020-04-11 20:02 | NUR ---
Report called to receiving nurse. Transferred via BED Belongings . Special Issues communicated to receiving nurse. AWAKE AND ORIENTED. VITALS STABLE. DRESSING DI. STATES PAIN IMPROVING. TO ORTHO RM 4010B AT THIS TIME.
--- NOTE | 2020-04-11 20:05 | NUR ---
Recieved report from Rehan JONES from recovery room. Call light placed within reach, bed locked & low position.
[2020-04-11] MEDS: oxyCODONE SR 10mg (sust. release) tab PO SCH (20:44)
[2020-04-11] MEDS: insulin glargine (Lantus) pen - multi-dose SQ SCH (21:30)
[2020-04-11] MEDS: atorvastatin 20mg tablet PO SCH (21:38)
[2020-04-11] MEDS: sennosides 8.6mg tablet PO SCH (21:38)
[2020-04-12] MEDS: ceFAZolin 1GM/D5W- ADD-VANTAGE 50 ML IV SCH ×2 (00:44→08:01)
[2020-04-12] MEDS: HYDROcodone/acetaminophen 10/325mg tab PO PRN ×6 (00:44→21:13)
[2020-04-12 02:00] VITALS: BP 151/65
[2020-04-12] MEDS: morphine 4 MG/ML inj SYRINge IV PRN ×8 (02:30→23:44)
[2020-04-12 03:06] LABS: BASOPHILS # (AUTO) 0.1 X10'3 (0-0.2); BASOPHILS % (AUTO) 0.8 % (0-1); EOSINOPHILS % (AUTO) 0 % (0-6); HEMATOCRIT 29.8 % (35.0-45.0); HEMOGLOBIN 9.7 g/dl (12.0-16.0); LYMPHOCYTES % (AUTO) 6.2 % (21-51); MEAN CORPUSCULAR HEMOGLOBIN 26.9 PG (27.0-31.0); MEAN CORPUSCULAR HGB CONC 32.5 g/dL (33.0-36.5); MEAN CORPUSCULAR VOLUME 82.9 FL (78-98); MEAN PLATELET VOLUME 7.9 FL (7.4-10.4); MONOCYTES # (AUTO) 0.4 X10'3 (0-0.9); MONOCYTES % (AUTO) 2.7 % (2-12); NEUTROPHILS # (AUTO) 15.1 X10'3 (1.8-7.7); NEUTROPHILS % (AUTO) 90.3 % (42-75); PLATELET COUNT 286 X10'3 (140-440); RED BLOOD COUNT 3.59 X10'6 (4.20-5.60); WHITE BLOOD COUNT 16.7 X10'3 (4.5-11.0)
[2020-04-12 03:22] LABS: ALANINE AMINOTRANSFERASE 20 U/L (12-78); ALBUMIN 2.6 G/DL (3.4-5.0); ALBUMIN/GLOBULIN RATIO 0.7 (1.1-1.5); ALKALINE PHOSPHATASE 78 IU/L (46-116); ANION GAP 7 (8-16); ASPARTATE AMINO TRANSFERASE 29 U/L (10-37); BILIRUBIN,TOTAL 0.3 MG/DL (0.1-1.0); BLOOD UREA NITROGEN 12 MG/DL (7-18); BUN/CREATININE RATIO 15.6 (6.6-38.0); CALCIUM 8.4 MG/DL (8.5-10.1); CHLORIDE 100 MMOL/L (99-107); CREATININE 0.77 MG/DL (0.40-0.90); GLUCOSE 207 MG/DL (70-104); MAGNESIUM 1.7 MG/DL (1.5-2.4); PHOSPHORUS 3.9 MG/DL (2.3-4.5); POTASSIUM 4.3 MMOL/L (3.5-5.1); SODIUM 132 MMOL/L (135-145); TOTAL CARBON DIOXIDE 25.3 MMOL/L (24-32); TOTAL PROTEIN 6.4 G/DL (6.4-8.2); eGFR 76 ML/MIN
[2020-04-12] MEDS: normal saline 1000ml 1,000 ML IV SCH ×2 (04:36→15:00)
[2020-04-12 06:00] VITALS: BP 149/44
--- NOTE | 2020-04-12 06:29 | NUR ---
Problems reprioritized. Patient report given, questions answered & plan of care reviewed with Shakeel JONES.
--- NOTE | 2020-04-12 06:31 | NUR ---
Patient in room ORTHO 4007. I have received report from [facility] and had the opportunity to ask questions and assume patient care.
[2020-04-12] MEDS: K and/or MAG REPLACEMENT MC SCH ×2 (06:56→19:55)
[2020-04-12] MEDS: oxyCODONE SR 10mg (sust. release) tab PO SCH ×2 (08:01→19:54)
[2020-04-12] MEDS: pantoprazole 40mg Tablet.DR PO SCH (08:01)
[2020-04-12] MEDS: furosemide 40mg tablet PO SCH (08:01)
[2020-04-12] MEDS: aspirin 81mg tab.chew PO SCH (08:01)
[2020-04-12] MEDS: metoprolol succinate 25mg (24-HOUR) SR. Tablet PO SCH (08:02)
[2020-04-12 10:00] VITALS: BP 120/46
[2020-04-12] MEDS: insulin Lispro (HumaLOG) vial - multi-dose SQ SCH ×2 (13:35→19:31)
[2020-04-12 18:00] VITALS: BP 122/43
--- NOTE | 2020-04-12 18:25 | NUR ---
Problems reprioritized. Patient report given, questions answered & plan of care reviewed with Sophia.
--- NOTE | 2020-04-12 18:39 | NUR ---
Patient in room ORTHO 4010. I have received report from Shakeel JONES and had the opportunity to ask questions and assume patient care.
[2020-04-12] MEDS: sennosides 8.6mg tablet PO SCH (19:54)
[2020-04-12] MEDS: atorvastatin 20mg tablet PO SCH (19:54)
[2020-04-12] MEDS: magnesium hydroxide 30ml (MOM) UD suspension PO PRN (19:57)
[2020-04-12] MEDS: insulin glargine (Lantus) pen - multi-dose SQ SCH (21:26)
[2020-04-12 22:00] VITALS: BP 112/50
[2020-04-13] MEDS: normal saline 1000ml 1,000 ML IV SCH ×3 (00:53→20:55)
[2020-04-13] MEDS: HYDROcodone/acetaminophen 10/325mg tab PO PRN ×6 (00:58→22:09)
[2020-04-13] MEDS: morphine 4 MG/ML inj SYRINge IV PRN ×7 (02:29→23:33)
[2020-04-13 05:45] LABS: ALANINE AMINOTRANSFERASE 17 U/L (12-78); ALBUMIN 2.5 G/DL (3.4-5.0); ALBUMIN/GLOBULIN RATIO 0.7 (1.1-1.5); ALKALINE PHOSPHATASE 74 IU/L (46-116); ANION GAP 6 (8-16); ASPARTATE AMINO TRANSFERASE 26 U/L (10-37); BILIRUBIN,TOTAL 0.3 MG/DL (0.1-1.0); BLOOD UREA NITROGEN 16 MG/DL (7-18); BUN/CREATININE RATIO 18.2 (6.6-38.0); CALCIUM 8.4 MG/DL (8.5-10.1); CHLORIDE 102 MMOL/L (99-107); CREATININE 0.88 MG/DL (0.40-0.90); GLUCOSE 139 MG/DL (70-104); MAGNESIUM 1.8 MG/DL (1.5-2.4); PHOSPHORUS 3.2 MG/DL (2.3-4.5); POTASSIUM 3.6 MMOL/L (3.5-5.1); SODIUM 133 MMOL/L (135-145); TOTAL CARBON DIOXIDE 25.2 MMOL/L (24-32); TOTAL PROTEIN 6.3 G/DL (6.4-8.2); eGFR 65 ML/MIN
[2020-04-13 06:00] VITALS: BP 156/50
--- NOTE | 2020-04-13 06:15 | NUR ---
Problems reprioritized. Patient report given, questions answered & plan of care reviewed with Shakeel JONES.
--- NOTE | 2020-04-13 06:25 | NUR ---
Patient in room ORTHO 4007. I have received report from [facility] and had the opportunity to ask questions and assume patient care.
[2020-04-13] MEDS: K and/or MAG REPLACEMENT MC SCH ×2 (06:37→19:36)
[2020-04-13 06:40] LABS: BASOPHILS # (AUTO) 0.1 X10'3 (0-0.2); BASOPHILS % (AUTO) 0.5 % (0-1); EOSINOPHILS # (AUTO) 0.2 X10'3 (0-0.9); EOSINOPHILS % (AUTO) 1.4 % (0-6); HEMATOCRIT 27.2 % (35.0-45.0); HEMOGLOBIN 8.8 g/dl (12.0-16.0); LYMPHOCYTES # (AUTO) 2.9 X10'3 (1.1-4.8); MEAN CORPUSCULAR HGB CONC 32.3 g/dL (33.0-36.5); MEAN CORPUSCULAR VOLUME 83.5 FL (78-98); MEAN PLATELET VOLUME 8.8 FL (7.4-10.4); MONOCYTES # (AUTO) 1.6 X10'3 (0-0.9); MONOCYTES % (AUTO) 10.2 % (2-12); NEUTROPHILS # (AUTO) 10.5 X10'3 (1.8-7.7); NEUTROPHILS % (AUTO) 68.9 % (42-75); PLATELET COUNT 289 X10'3 (140-440); RED BLOOD COUNT 3.26 X10'6 (4.20-5.60); RED CELL DISTRIBUTION WIDTH 14.2 % (11.5-14.5); WHITE BLOOD COUNT 15.3 X10'3 (4.5-11.0)
[2020-04-13] MEDS: metoprolol succinate 25mg (24-HOUR) SR. Tablet PO SCH (07:29)
[2020-04-13] MEDS: oxyCODONE SR 10mg (sust. release) tab PO SCH ×2 (07:29→19:36)
[2020-04-13] MEDS: furosemide 40mg tablet PO SCH (07:29)
[2020-04-13] MEDS: aspirin 81mg tab.chew PO SCH (07:29)
[2020-04-13] MEDS: pantoprazole 40mg Tablet.DR PO SCH (07:29)
[2020-04-13] MEDS: insulin Lispro (HumaLOG) vial - multi-dose SQ SCH ×2 (08:32→19:00)
[2020-04-13 10:00] VITALS: BP 120/51
--- NOTE | 2020-04-13 13:42 | NUR ---
educated patient on her diabetes and her eating habits. Patient has someone bringing nachos/salad from outside. Patient verbalized understanding.
--- NOTE | 2020-04-13 16:50 | NUR ---
spoke with Dr. jean baptiste about patients pain level (05/11). Per , okay staggering [place] and morphine medication to help control pain level.
[2020-04-13 18:00] VITALS: BP 111/49
--- NOTE | 2020-04-13 18:15 | NUR ---
Problems reprioritized. Patient report given, questions answered & plan of care reviewed with Sophia.
--- NOTE | 2020-04-13 18:16 | NUR ---
Patient in room ORTHO 4010. I have received report from Shakeel JONES and had the opportunity to ask questions and assume patient care.
[2020-04-13] MEDS: magnesium hydroxide 30ml (MOM) UD suspension PO PRN (19:59)
[2020-04-13] MEDS: atorvastatin 20mg tablet PO SCH (19:59)
[2020-04-13] MEDS: sennosides 8.6mg tablet PO SCH (19:59)
[2020-04-13] MEDS: insulin glargine (Lantus) pen - multi-dose SQ SCH (20:59)
[2020-04-13 22:00] VITALS: BP 113/52
[2020-04-14] MEDS: HYDROcodone/acetaminophen 10/325mg tab PO PRN ×5 (01:55→23:04)
[2020-04-14] MEDS: morphine 4 MG/ML inj SYRINge IV PRN (04:27)
[2020-04-14 06:00] VITALS: BP 100/67
--- NOTE | 2020-04-14 06:04 | NUR ---
Problems reprioritized. Patient report given, questions answered & plan of care reviewed with Mavis JONES.
[2020-04-14 06:37] LABS: BASOPHILS # (AUTO) 0.1 X10'3 (0-0.2); BASOPHILS % (AUTO) 0.9 % (0-1); EOSINOPHILS # (AUTO) 0.6 X10'3 (0-0.9); EOSINOPHILS % (AUTO) 4.3 % (0-6); HEMATOCRIT 25.4 % (35.0-45.0); HEMOGLOBIN 8.2 g/dl (12.0-16.0); LYMPHOCYTES # (AUTO) 3.2 X10'3 (1.1-4.8); LYMPHOCYTES % (AUTO) 24.8 % (21-51); MEAN CORPUSCULAR HEMOGLOBIN 26.9 PG (27.0-31.0); MEAN CORPUSCULAR HGB CONC 32.3 g/dL (33.0-36.5); MEAN CORPUSCULAR VOLUME 83.4 FL (78-98); MEAN PLATELET VOLUME 8.3 FL (7.4-10.4); MONOCYTES # (AUTO) 1.2 X10'3 (0-0.9); MONOCYTES % (AUTO) 9.3 % (2-12); NEUTROPHILS # (AUTO) 7.8 X10'3 (1.8-7.7); NEUTROPHILS % (AUTO) 60.7 % (42-75); PLATELET COUNT 286 X10'3 (140-440); RED BLOOD COUNT 3.05 X10'6 (4.20-5.60); RED CELL DISTRIBUTION WIDTH 14.4 % (11.5-14.5); WHITE BLOOD COUNT 12.8 X10'3 (4.5-11.0)
[2020-04-14 06:47] LABS: ALANINE AMINOTRANSFERASE 26 U/L (12-78); ALBUMIN 2.3 G/DL (3.4-5.0); ALBUMIN/GLOBULIN RATIO 0.6 (1.1-1.5); ALKALINE PHOSPHATASE 103 IU/L (46-116); ANION GAP 6 (8-16); ASPARTATE AMINO TRANSFERASE 29 U/L (10-37); BILIRUBIN,TOTAL 0.3 MG/DL (0.1-1.0); BLOOD UREA NITROGEN 13 MG/DL (7-18); BUN/CREATININE RATIO 17.1 (6.6-38.0); CALCIUM 8.3 MG/DL (8.5-10.1); CHLORIDE 102 MMOL/L (99-107); CREATININE 0.76 MG/DL (0.40-0.90); GLUCOSE 114 MG/DL (70-104); MAGNESIUM 1.9 MG/DL (1.5-2.4); PHOSPHORUS 3.6 MG/DL (2.3-4.5); POTASSIUM 3.9 MMOL/L (3.5-5.1); SODIUM 134 MMOL/L (135-145); TOTAL CARBON DIOXIDE 26.3 MMOL/L (24-32); TOTAL PROTEIN 6.1 G/DL (6.4-8.2); eGFR 77 ML/MIN
--- NOTE | 2020-04-14 07:44 | NUR ---
PAGER ID: [phone] MESSAGE: [id number] Ruchi Chambers 64 Can we change patients 2 -/325 NorcoQ4 for 2 -10 Percocet Q4. Pt has built chencho at home to [place] and is asking for 4mg Morph Q2 in addition. #[phone] Mavis
[2020-04-14] MEDS: K and/or MAG REPLACEMENT MC SCH ×2 (08:00→20:00)
[2020-04-14] MEDS: metoprolol succinate 25mg (24-HOUR) SR. Tablet PO SCH (08:00)
[2020-04-14] MEDS: furosemide 40mg tablet PO SCH (08:00)
[2020-04-14] MEDS: pantoprazole 40mg Tablet.DR PO SCH (09:17)
[2020-04-14] MEDS: oxyCODONE SR 10mg (sust. release) tab PO SCH ×2 (09:17→20:23)
[2020-04-14] MEDS: aspirin 81mg tab.chew PO SCH (09:17)
[2020-04-14] MEDS ORDERED: HYDROcodone/acetaminophen 10/325mg tab PO PRN (10:10)
[2020-04-14] MEDS: insulin Lispro (HumaLOG) vial - multi-dose SQ SCH ×3 (10:16→19:15)
--- NOTE | 2020-04-14 12:25 | NUR ---
Initial: Pt admit w/ R femur fx s/p repair. PO fluctuating overall ~50% avg carb controlled meals up to 75/100% at time. LBM 04/09 receiving oxycodone Q12; MARIO d/w RN regarding opioid antagonist if MD agreeable post-op. Constipation likely to impact PO as well. Will continue to monitor for additional protein needs post-op. Rec: 1. continue carb controlled diet 2. monitor for ONS needs 3. routine bowel care; consider opioid antagonist if MD agreeable since receivin oxycodone Q12 and constipation 4. wt per rx Addendum: 04/14/20 at [address] Amended: Links added.
--- NOTE | 2020-04-14 13:19 | NUR ---
Dr Johnson came in and talked to patient who was not happy about narcotics being tapered down. Dr johnson gave another order to continue the 2 norcos but to DC the morphine. New Order placed
--- NOTE | 2020-04-14 16:19 | NUR ---
Student documentation: I have reviewed assessments performed and documented by Deborah [facility].
[2020-04-14 18:00] VITALS: BP 121/58
[2020-04-14] MEDS: sennosides 8.6mg tablet PO SCH (20:23)
[2020-04-14] MEDS: atorvastatin 20mg tablet PO SCH (20:23)
[2020-04-14] MEDS: insulin glargine (Lantus) pen - multi-dose SQ SCH (21:56)
[2020-04-14 22:00] VITALS: BP 127/59
[2020-04-15] MEDS: HYDROcodone/acetaminophen 10/325mg tab PO PRN ×5 (04:22→23:53)
[2020-04-15 06:00] VITALS: BP 125/67
[2020-04-15] MEDS: K and/or MAG REPLACEMENT MC SCH ×2 (08:00→20:00)
[2020-04-15] MEDS: furosemide 40mg tablet PO SCH (08:24)
[2020-04-15] MEDS: pantoprazole 40mg Tablet.DR PO SCH (08:24)
[2020-04-15] MEDS: oxyCODONE SR 10mg (sust. release) tab PO SCH ×2 (08:24→19:59)
[2020-04-15] MEDS: metoprolol succinate 25mg (24-HOUR) SR. Tablet PO SCH (08:24)
[2020-04-15] MEDS: aspirin 81mg tab.chew PO SCH (08:26)
[2020-04-15] MEDS: insulin Lispro (HumaLOG) vial - multi-dose SQ SCH ×2 (08:56→19:32)
[2020-04-15 10:00] VITALS: BP 101/57
--- NOTE | 2020-04-15 17:02 | NUR ---
Patient pain is always a consistent 8-10 wether shes had oxy, norco or morphine. Per Dr Johnson patient is ok taking the 2 x 10mg norco Q4 and oxy SR BID.
[2020-04-15 18:00] VITALS: BP 111/74
--- NOTE | 2020-04-15 18:10 | NUR ---
Problems reprioritized. Patient report given, questions answered & plan of care reviewed with
[2020-04-15] MEDS: atorvastatin 20mg tablet PO SCH (19:59)
[2020-04-15] MEDS: sennosides 8.6mg tablet PO SCH (20:00)
[2020-04-15 22:00] VITALS: BP 108/54
[2020-04-15] MEDS: insulin glargine (Lantus) pen - multi-dose SQ SCH (22:15)
[2020-04-16] MEDS: HYDROcodone/acetaminophen 10/325mg tab PO PRN ×3 (04:10→13:23)
[2020-04-16 06:31] VITALS: BP 122/70
--- NOTE | 2020-04-16 07:11 | NUR ---
Patient in room ORTHO 4010. I have received report from ROBERT MCKEON and had the opportunity to ask questions and assume patient care.
[2020-04-16] MEDS: aspirin 81mg tab.chew PO SCH (07:41)
[2020-04-16] MEDS: oxyCODONE SR 10mg (sust. release) tab PO SCH (07:41)
[2020-04-16] MEDS: metoprolol succinate 25mg (24-HOUR) SR. Tablet PO SCH (07:42)
[2020-04-16] MEDS: pantoprazole 40mg Tablet.DR PO SCH (07:42)
[2020-04-16] MEDS: furosemide 40mg tablet PO SCH (07:42)
[2020-04-16] MEDS: magnesium hydroxide 30ml (MOM) UD suspension PO PRN (07:46)
[2020-04-16] MEDS: K and/or MAG REPLACEMENT MC SCH (08:00)
[2020-04-16] MEDS: insulin Lispro (HumaLOG) vial - multi-dose SQ SCH ×2 (09:13→13:25)
[2020-04-16 10:00] VITALS: BP 125/57
--- NOTE | 2020-04-16 11:00 | NUR ---
Dressing r/t right femur ORIF changed, wound sutures cdi.
--- NOTE | 2020-04-16 13:47 | NUR ---
Report called and given to Nurse Do at [facility].
--- NOTE | 2020-04-16 14:21 | NUR ---
Patient A&O no complaints. DC'd with kathie with all personal belongings that were at bedside. 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
== END 2020-04-16 14:20 | DRG 308 ==
LOC: ER 15:03 → ED HOLD 17:14 → ORTHO 4S 21:10
PROVIDERS: ADMIT Family Medicine; ATTEND Family Medicine
PROC: 3E0T3BZ Introduction of Anesthetic Agent into Peripheral Nerves and Plexi, Percutaneous Approach (ICD-10-PCS; 2020-04-11)
PROC: 0QS804Z Reposition Right Femoral Shaft with Internal Fixation Device, Open Approach (ICD-10-PCS; principal; 2020-04-11 14:25)
DX: S72.321A Displaced transverse fracture of shaft of right femur, initial encounter for closed fracture (principal); M97.11XA Periprosthetic fracture around internal prosthetic right knee joint, initial encounter; D64.9 Anemia, unspecified; E11.9 Type 2 diabetes mellitus without complications; E66.01 Morbid (severe) obesity due to excess calories; N19 Unspecified kidney failure; Z66 Do not resuscitate; Z96.652 Presence of left artificial knee joint; K21.9 Gastro-esophageal reflux disease without esophagitis; E78.5 Hyperlipidemia, unspecified; Z60.2 Problems related to living alone; I10 Essential (primary) hypertension; W01.0XXA Fall on same level from slipping, tripping and stumbling without subsequent striking against object, initial encounter; I25.10 Atherosclerotic heart disease of native coronary artery without angina pectoris; Z68.39 Body mass index [BMI] 39.0-39.9, adult; Z80.3 Family history of malignant neoplasm of breast; Z87.891 Personal history of nicotine dependence; Z95.1 Presence of aortocoronary bypass graft; Y93.55 Activity, bike riding; Y92.89 Other specified places as the place of occurrence of the external cause; Y99.8 Other external cause status; Z90.49 Acquired absence of other specified parts of digestive tract; Z79.899 Other long term (current) drug therapy; Z79.82 Long term (current) use of aspirin
CPT/HCPCS: 36415; 71045; 73552; 73560; 76000; 80053; 81003; 82948; 83036; 83735; 84100; 85025; 85610; 86885; 86900; 86901; 86920; 87081; 93005; 96374; 96375; 96376; 97110; 97112; 97116; 97161; 97530; 99285; G0378; J0690; J1815; J2175; J2250; J2270; J2405; J2704; J2795; J3010; J3370; J3490; J7030; Q0163

== ENCOUNTER 2021-10-27 01:17 | Emergency (ER) | payer MEDICARE, MEDICAID ==
[~2021-10-27] VITALS: Ht 172.7 cm; Wt 127.0 kg
[~2021-10-27 01:17] MED LIST changes: -FERR240T5 PO; -MONT10TA21 PO; -OXYC10TA86 PO; +OXYC10TA92 PO; -POTA8TAB3 PO; +POTA8TAB69 PO
[2021-10-27 01:48] LABS: BASOPHILS # (AUTO) 0.1 X10'3 (0-0.2); BASOPHILS % (AUTO) 1.1 % (0-1); EOSINOPHILS # (AUTO) 0.3 X10'3 (0-0.9); HEMATOCRIT 33.8 % (35.0-45.0); HEMOGLOBIN 10.8 g/dl (12.0-16.0); LYMPHOCYTES # (AUTO) 3.5 X10'3 (1.1-4.8); LYMPHOCYTES % (AUTO) 27.8 % (21-51); MEAN CORPUSCULAR HEMOGLOBIN 24.9 PG (27.0-31.0); MEAN CORPUSCULAR HGB CONC 31.9 g/dL (33.0-36.5); MEAN CORPUSCULAR VOLUME 78.1 FL (78-98); MONOCYTES # (AUTO) 0.7 X10'3 (0-0.9); MONOCYTES % (AUTO) 5.8 % (2-12); NEUTROPHILS % (AUTO) 63.3 % (42-75); PLATELET COUNT 254 X10'3 (140-440); RED BLOOD COUNT 4.33 X10'6 (4.20-5.60); RED CELL DISTRIBUTION WIDTH 15.6 % (11.5-14.5); WHITE BLOOD COUNT 12.6 X10'3 (4.5-11.0)
[2021-10-27] MEDS: aspirin 325mg tablet PO ONE (01:51)
[2021-10-27 02:02] LABS: ALANINE AMINOTRANSFERASE 22 U/L (12-78); ALBUMIN 2.9 G/DL (3.4-5.0); ALBUMIN/GLOBULIN RATIO 0.7 (1.1-1.5); ALKALINE PHOSPHATASE 117 IU/L (46-116); ANION GAP 10 (8-16); ASPARTATE AMINO TRANSFERASE 11 U/L (10-37); BILIRUBIN,TOTAL 0.3 MG/DL (0.1-1.0); BLOOD UREA NITROGEN 14 MG/DL (7-18); BUN/CREATININE RATIO 16.7 (6.6-38.0); CALCIUM 8.2 MG/DL (8.5-10.1); CHLORIDE 96 MMOL/L (99-107); CREATININE 0.84 MG/DL (0.40-0.90); GLUCOSE 295 MG/DL (70-104); POTASSIUM 3.8 MMOL/L (3.5-5.1); SODIUM 130 MMOL/L (135-145); TOTAL CARBON DIOXIDE 24.4 MMOL/L (24-32); TOTAL PROTEIN 6.8 G/DL (6.4-8.2); eGFR 68 ML/MIN
[2021-10-27 03:59] VITALS: BP 156/65
== END 2021-10-27 04:23 | disposition admitted as inpatient to this hospital (09) ==
LOC: ER 01:17
DX: T38.3X1A Poisoning by insulin and oral hypoglycemic [antidiabetic] drugs, accidental (unintentional), initial encounter (principal); R07.89 Other chest pain; R11.0 Nausea; R61 Generalized hyperhidrosis; I25.10 Atherosclerotic heart disease of native coronary artery without angina pectoris; E78.00 Pure hypercholesterolemia, unspecified; I10 Essential (primary) hypertension; E11.9 Type 2 diabetes mellitus without complications; Z87.81 Personal history of (healed) traumatic fracture; Z95.5 Presence of coronary angioplasty implant and graft; Z88.8 Allergy status to other drugs, medicaments and biological substances; Z79.82 Long term (current) use of aspirin; Z79.899 Other long term (current) drug therapy; Y92.89 Other specified places as the place of occurrence of the external cause
CPT/HCPCS: 36415; 71045; 80053; 82948; 83880; 84484; 85025; 93005; 99283; 99285

== ENCOUNTER 2024-01-27 11:35 | Inpatient (IN) | payer MEDICARE, MEDICAID ==
[~2024-01-27] VITALS: Ht 167.6 cm; Wt 126.0 kg
[~2024-01-27 11:35] MED LIST changes: +OXYC-752 PO; -OXYC10TA92 PO; -SITA100T11 PO
[2024-01-27 12:11] LABS: BASOPHILS # (AUTO) 0.1 X10'3 (0-0.2); BASOPHILS % (AUTO) 0.8 % (0-1); EOSINOPHILS # (AUTO) 0.2 X10'3 (0-0.9); EOSINOPHILS % (AUTO) 1.4 % (0-6); HEMATOCRIT 37.2 % (35.0-45.0); LYMPHOCYTES # (AUTO) 2.6 X10'3 (1.1-4.8); LYMPHOCYTES % (AUTO) 22.3 % (21-51); MEAN CORPUSCULAR HEMOGLOBIN 26.5 PG (27.0-31.0); MEAN CORPUSCULAR HGB CONC 32.3 g/dL (33.0-36.5); MEAN PLATELET VOLUME 8.7 FL (7.4-10.4); MONOCYTES # (AUTO) 0.7 X10'3 (0-0.9); NEUTROPHILS # (AUTO) 8.3 X10'3 (1.8-7.7); NEUTROPHILS % (AUTO) 69.5 % (42-75); PLATELET COUNT 260 X10'3 (140-440); RED BLOOD COUNT 4.53 X10'6 (4.20-5.60); RED CELL DISTRIBUTION WIDTH 14.6 % (11.5-14.5); WHITE BLOOD COUNT 11.9 X10'3 (4.5-11.0)
[2024-01-27 12:28] LABS: ALANINE AMINOTRANSFERASE 27 U/L (12-78); ALBUMIN 2.9 G/DL (3.4-5.0); ALBUMIN/GLOBULIN RATIO 0.7 (1.1-1.5); ALKALINE PHOSPHATASE 93 IU/L (46-116); ANION GAP 9 (8-16); ASPARTATE AMINO TRANSFERASE 21 U/L (10-37); BILIRUBIN,TOTAL 0.4 MG/DL (0.1-1.0); BLOOD UREA NITROGEN 23 MG/DL (7-18); BUN/CREATININE RATIO 21.1 (10.0-20.0); CALCIUM 8.6 MG/DL (8.5-10.1); CHLORIDE 98 MMOL/L (99-107); CREATININE 1.09 MG/DL (0.40-0.90); GLUCOSE 244 MG/DL (70-104); POTASSIUM 4.1 MMOL/L (3.5-5.1); SODIUM 131 MMOL/L (135-145); TOTAL CARBON DIOXIDE 23.8 MMOL/L (24-32); TOTAL PROTEIN 6.9 G/DL (6.4-8.2); eCRCL 47 ML/MIN; eGFR 50 ML/MIN
[2024-01-27 12:35] LABS: PRO BRAIN NATRIURETIC PEPTIDE 620 PG/ML (0-125)
[2024-01-27 14:11] LABS: BILIRUBIN,URINE NEGATIVE (Neg); CLARITY,URINE CLEAR (Clear); COLOR,URINE YELLOW (Yellow); GLUCOSE, URINE NEGATIVE (Neg); KETONES,URINE NEGATIVE (Neg); LEUKOCYTE ESTERASE ,URINE NEGATIVE (Neg); NITRITES, URINE NEGATIVE (Neg); OCCULT BLOOD,URINE NEGATIVE (Neg); PROTEIN,URINE NEGATIVE (Neg); UROBILINOGEN,URINE 0.2 E.U/dL (0.2-1.0)
[2024-01-27] MEDS: normal saline 1000ML IV soln IVB ONE ×2 (14:12→15:38)
[2024-01-27 14:22] LABS: UA COLLECTION TYPE CLN CATCH MIDSTREAM
[2024-01-27 14:45] LABS: BILIRUBIN,DIRECT 0.1 MG/DL (0-0.3); MAGNESIUM 1.6 MG/DL (1.5-2.4)
[2024-01-27 17:18] LABS: URINE AMPHETAMINE SCREEN NEGATIVE (Neg); URINE BARBITUATE SCREEN NEGATIVE (Neg); URINE BENZODIAZEPINES SCREEN NEGATIVE (Neg); URINE CANNABINOID SCREEN NEGATIVE (Neg); URINE COCAINE SCREEN NEGATIVE (Neg); URINE METHADONE SCREEN NEGATIVE (Neg); URINE OPIATE SCREEN POSITIVE (Neg); URINE PHENCYCLIDINE SCREEN NEGATIVE (Neg)
[2024-01-27] MEDS ORDERED: iohexol 350MG/ML 100ml bottle IV ONE (17:33)
[2024-01-27 18:42] LABS: FREE T4 (FREE THYROXINE) 1.12 NG/DL (0.73-1.40); THYROID STIMULATING HORMONE 3.14 ulU/ml (0.34-4.50)
[2024-01-27] MEDS ORDERED: ondansetron/PF 4mg/2ml inj IV PRN (21:45)
[2024-01-27] MEDS ORDERED: magnesium 2GM in 50ml NS 50 ML IV PRN (21:45)
[2024-01-27] MEDS ORDERED: mag hydrox/Alum hydrox/simeth 30ml oral suspension PO PRN (21:45)
[2024-01-27] MEDS ORDERED: magnesium 4gm in 100ml NS 100 ML IV PRN (21:45)
[2024-01-27] MEDS ORDERED: acetaminophen 325mg tablet PO PRN ×2 (21:45)
[2024-01-27] MEDS ORDERED: potassium Cl 20 mEq SR tablet PO PRN ×2 (21:45)
[2024-01-27] MEDS ORDERED: potassium Cl 40MEQ/1/2NS 520ml 520 ML IV PRN (21:45)
[2024-01-27] MEDS ORDERED: magnesium Cl slow-release 64mg tablet PO PRN (21:45)
[2024-01-27] MEDS: furosemide 10 MG/1 ML 10ml inj IV SCH (22:03)
[2024-01-27] MEDS ORDERED: dextrose 50%-water 50ml dispensing syringe IV PRN ×2 (22:10)
[2024-01-27] MEDS: insulin glargine (Lantus) pen - multi-dose SQ SCH (22:10)
[2024-01-27] MEDS ORDERED: glucagon, human recombinant 1mg kit SUBCUT PRN (22:10)
[2024-01-27] MEDS ORDERED: DEXTROSE 15 GM of carb/4 tabs (each vial/BOTTLE has 4 tablets) PO PRN ×2 (22:10)
[2024-01-28] VITALS (7 sets, daily range): BP systolic 112–141; BP diastolic 52–81; PULSE 56–98; RESP 13–17; TEMP 96.5–97.8; O2SAT 91–98
[2024-01-28 04:06] LABS: BASOPHILS # (AUTO) 0.1 X10'3 (0-0.2); EOSINOPHILS # (AUTO) 0.3 X10'3 (0-0.9); EOSINOPHILS % (AUTO) 2.7 % (0-6); HEMATOCRIT 34.7 % (35.0-45.0); HEMOGLOBIN 11.3 g/dl (12.0-16.0); LYMPHOCYTES % (AUTO) 29.2 % (21-51); MEAN CORPUSCULAR HEMOGLOBIN 26.5 PG (27.0-31.0); MEAN CORPUSCULAR HGB CONC 32.6 g/dL (33.0-36.5); MEAN CORPUSCULAR VOLUME 81.2 FL (78-98); MEAN PLATELET VOLUME 8.8 FL (7.4-10.4); MONOCYTES # (AUTO) 0.8 X10'3 (0-0.9); MONOCYTES % (AUTO) 7.5 % (2-12); NEUTROPHILS # (AUTO) 6.2 X10'3 (1.8-7.7); NEUTROPHILS % (AUTO) 59.6 % (42-75); PLATELET COUNT 249 X10'3 (140-440); RED BLOOD COUNT 4.27 X10'6 (4.20-5.60); RED CELL DISTRIBUTION WIDTH 14.7 % (11.5-14.5); WHITE BLOOD COUNT 10.4 X10'3 (4.5-11.0)
[2024-01-28 04:18] LABS: APTT 28 SECONDS (22-32); INR 1.1 INR; PROTHROMBIN TIME 11.1 SECONDS (9.0-12.0)
[2024-01-28 04:26] LABS: ALANINE AMINOTRANSFERASE 22 U/L (12-78); ALBUMIN 2.6 G/DL (3.4-5.0); ALBUMIN/GLOBULIN RATIO 0.7 (1.1-1.5); ALKALINE PHOSPHATASE 74 IU/L (46-116); ANION GAP 7 (8-16); ASPARTATE AMINO TRANSFERASE 13 U/L (10-37); BILIRUBIN,TOTAL 0.4 MG/DL (0.1-1.0); BLOOD UREA NITROGEN 21 MG/DL (7-18); BUN/CREATININE RATIO 22.6 (10.0-20.0); CALCIUM 8.9 MG/DL (8.5-10.1); CHLORIDE 102 MMOL/L (99-107); CHOL/HDL RATIO 1.9 (0.00-4.99); CHOLESTEROL 71 MG/DL (0-200); CREATININE 0.93 MG/DL (0.40-0.90); GLUCOSE 182 MG/DL (70-104); HDL CHOLESTEROL 37 MG/DL (35-60); LDL CHOLESTEROL 24 MG/DL (50-100); MAGNESIUM 1.7 MG/DL (1.5-2.4); PHOSPHORUS 4.4 MG/DL (2.3-4.5); POTASSIUM 4.1 MMOL/L (3.5-5.1); SODIUM 134 MMOL/L (135-145); TOTAL CARBON DIOXIDE 24.9 MMOL/L (24-32); TOTAL PROTEIN 6.3 G/DL (6.4-8.2); TRIGLYCERIDES 143 MG/DL (20-135); eCRCL 55 ML/MIN; eGFR 60 ML/MIN
[2024-01-28 04:28] LABS: HEMOGLOBIN A1C 8.2 % (4.5-6.2)
[2024-01-28] MEDS ORDERED: nitroGLYCERIN 0.4mg SUBLingual tab SL PRN (05:10)
[2024-01-28] MEDS: aspirin 81mg, enteric-coated 1 TAB TABLET.DR PO SCH (07:57)
[2024-01-28] MEDS: metoprolol succinate 25mg (24-HOUR) SR. Tablet PO SCH (07:57)
[2024-01-28] MEDS: HYDROcodone/acetaminophen 10/325mg tab PO SCH (07:58)
[2024-01-28] MEDS: K and/or MAG REPLACEMENT MC SCH (08:13)
[2024-01-28] MEDS: INSULIN LISPRO 100 UNIT/ML INSULN.PEN MULTI-DOSE SQ SCH (09:00)
[2024-01-28] MEDS: magnesium hydroxide 30ml (MOM) UD suspension PO PRN (15:53)
[2024-01-28] MEDS: atorvastatin 20mg tablet PO SCH (20:45)
[2024-01-28] MEDS: enoxaparin 40mg/0.4ml syringe SQ SCH (20:47)
[2024-01-29 02:00] VITALS: BP 141/54; PULSE 53; RESP 16; TEMP 97.5; O2SAT 97
[2024-01-29 05:52] LABS: BASOPHILS # (AUTO) 0.1 X10'3 (0-0.2); BASOPHILS % (AUTO) 0.6 % (0-1); EOSINOPHILS # (AUTO) 0.3 X10'3 (0-0.9); EOSINOPHILS % (AUTO) 3.2 % (0-6); HEMATOCRIT 34.5 % (35.0-45.0); HEMOGLOBIN 11.2 g/dl (12.0-16.0); LYMPHOCYTES # (AUTO) 3.2 X10'3 (1.1-4.8); LYMPHOCYTES % (AUTO) 30.7 % (21-51); MEAN CORPUSCULAR HEMOGLOBIN 26.4 PG (27.0-31.0); MEAN CORPUSCULAR HGB CONC 32.3 g/dL (33.0-36.5); MEAN CORPUSCULAR VOLUME 81.9 FL (78-98); MEAN PLATELET VOLUME 8.7 FL (7.4-10.4); MONOCYTES # (AUTO) 0.8 X10'3 (0-0.9); MONOCYTES % (AUTO) 7.6 % (2-12); NEUTROPHILS % (AUTO) 57.9 % (42-75); PLATELET COUNT 243 X10'3 (140-440); RED BLOOD COUNT 4.22 X10'6 (4.20-5.60); RED CELL DISTRIBUTION WIDTH 14.6 % (11.5-14.5); WHITE BLOOD COUNT 10.5 X10'3 (4.5-11.0)
[2024-01-29 06:00] VITALS: BP 130/60; PULSE 52; RESP 12; TEMP 98.3; O2SAT 93
[2024-01-29 06:07] LABS: APTT 29 SECONDS (22-32); PROTHROMBIN TIME 10.6 SECONDS (9.0-12.0)
[2024-01-29 06:18] LABS: ALANINE AMINOTRANSFERASE 22 U/L (12-78); ALBUMIN 2.7 G/DL (3.4-5.0); ALBUMIN/GLOBULIN RATIO 0.7 (1.1-1.5); ALKALINE PHOSPHATASE 88 IU/L (46-116); ANION GAP 9 (8-16); ASPARTATE AMINO TRANSFERASE 12 U/L (10-37); BILIRUBIN,TOTAL 0.3 MG/DL (0.1-1.0); BLOOD UREA NITROGEN 29 MG/DL (7-18); BUN/CREATININE RATIO 27.4 (10.0-20.0); CALCIUM 8.9 MG/DL (8.5-10.1); CHLORIDE 97 MMOL/L (99-107); CREATININE 1.06 MG/DL (0.40-0.90); GLUCOSE 126 MG/DL (70-104); MAGNESIUM 1.9 MG/DL (1.5-2.4); PHOSPHORUS 4.9 MG/DL (2.3-4.5); SODIUM 132 MMOL/L (135-145); TOTAL CARBON DIOXIDE 25.8 MMOL/L (24-32); TOTAL PROTEIN 6.6 G/DL (6.4-8.2); eCRCL 48 ML/MIN; eGFR 52 ML/MIN
[2024-01-29 08:00] VITALS: RESP 12; O2SAT 93
[2024-01-29] MEDS ORDERED: furosemide 40mg/4ml inj IV SCH (08:02)
[2024-01-29] MEDS: furosemide 40mg/4ml inj IV ONE (08:29)
[2024-01-29 11:00] VITALS: BP 144/70; PULSE 54; RESP 13; TEMP 97.4; O2SAT 96
== END 2024-01-29 14:25 | disposition home or self-care (01) | DRG 291 ==
LOC: ER 11:36 → UNDOADMIN 21:41 → ED HOLD 21:41 → EDBEDREQ 22:06 → PCU 3S 01-28 00:15 → ED HOLD 01-28 00:15
PROVIDERS: ADMIT Internal Medicine Pulmonary Disease; ATTEND Internal Medicine
PROC: B32T1ZZ Computerized Tomography (CT Scan) of Left Pulmonary Artery using Low Osmolar Contrast (ICD-10-PCS; principal; 2024-01-27)
PROC: B3201ZZ Computerized Tomography (CT Scan) of Thoracic Aorta using Low Osmolar Contrast (ICD-10-PCS; 2024-01-27)
PROC: B32S1ZZ Computerized Tomography (CT Scan) of Right Pulmonary Artery using Low Osmolar Contrast (ICD-10-PCS; 2024-01-27)
DX: I13.0 Hypertensive heart and chronic kidney disease with heart failure and stage 1 through stage 4 chronic kidney disease, or unspecified chronic kidney disease (principal); I50.33 Acute on chronic diastolic (congestive) heart failure; E78.5 Hyperlipidemia, unspecified; N18.9 Chronic kidney disease, unspecified; E78.00 Pure hypercholesterolemia, unspecified; I48.91 Unspecified atrial fibrillation; I25.10 Atherosclerotic heart disease of native coronary artery without angina pectoris; E11.22 Type 2 diabetes mellitus with diabetic chronic kidney disease; Z88.6 Allergy status to analgesic agent; Z79.84 Long term (current) use of oral hypoglycemic drugs; Z79.899 Other long term (current) drug therapy; Z90.49 Acquired absence of other specified parts of digestive tract; Z90.5 Acquired absence of kidney; Z95.1 Presence of aortocoronary bypass graft; Z89.412 Acquired absence of left great toe; Z99.3 Dependence on wheelchair
CPT/HCPCS: 36415; 71045; 71275; 80053; 80061; 80305; 81003; 82248; 82948; 83036; 83605; 83735; 83880; 84100; 84439; 84443; 84484; 85025; 85610; 85730; 87081; 93005; 93306; 99212; 99285; G0378; J1650; J1815; J1940; J7030; Q9967